=== PATIENT | female | born 1995 | race Caucasian/White ===

== ENCOUNTER 2024-06-09 08:42 | Outpatient (CLI) | payer OTHER, SELFPAY ==
--- NOTE | ~2024-06-09 | US_ITS ---
EXAMINATION: US thyroid DATE: 06/09/2024 08:57 INDICATION: Nontoxic goiter. TECHNIQUE: Multiple ultrasound images of the thyroid were obtained. COMPARISON: None. FINDINGS: The right thyroid lobe measures 4.5 x 1.3 x 1.7 cm. The left thyroid lobe measures 4.2 x 1.2 x 1.6 c m. There is normal echotexture and echogenicity throughout the thyroid gland. No discrete nodules id entified. Normal vascular flow is present. IMPRESSION: 1. Normal thyroid. Reviewed, dictated and finalized at location A. UNIT OPERATOR IMPRESSION: 1. Normal thyroid.
== END 2024-06-09 08:43 | disposition home or self-care (01) ==
LOC: MICIMG 08:44
PROVIDERS: PCP Internal Medicine Endocrinology, Diabetes & Metabolism; Visit Provider Internal Medicine Endocrinology, Diabetes & Metabolism
DX: E04.9 Nontoxic goiter, unspecified (principal)
CPT/HCPCS: 76536

== ENCOUNTER 2025-01-24 07:39 | Outpatient (CLI) | payer OTHER, SELFPAY ==
--- NOTE | ~2025-01-24 | MR_ITS ---
EXAMINATION: MR brain/brain stem wo/w con DATE: 01/24/2025 09:01 INDICATION: Sensorimotor neuropathy TECHNIQUE: Magnetic resonance imaging (MRI) of the brain and brainstem was performed without and with 11 mL Multihance intravenous contrast. Whole-brain sequences included sagittal T1-weighted FSE, axia l diffusion-weighted FS EPI, axial 3D SWAN, axial T2-weighted FLAIR Propeller, and axial T2-weighted Propeller. Small [id number]-ww-yacr sequences included sagittal and coronal T1-weighted FSE centered at th e pituitary. Postcontrast sequences included small dhrka-[id number]-vqra coronal T1-weighted FSE in a time c ourse and sagittal T1-weighted FSE and whole-brain axial T1-weighted FSE. Apparent diffusion coeffici ent (ADC) maps were created. . COMPARISON: None. FINDINGS: There are no areas of restricted diffusion to suggest acute infarction. No intracranial hemorrhage or abnormal intracranial mass lesion. Pituitary appears normal in size and morphology with normal poste rior pituitary bright spot and normal midline pituitary stalk. No hyper or hypoenhancing pituitary le sions identified. Single small focus of nonspecific increased T2-weighted signal intensity at the lef t thalamus. No other evident white matter lesions. There is a small enhancing developmental venous an omaly in the white matter of the right frontal lobe centrum semiovale. There are no intraparenchymal signal abnormalities seen on the other pulse sequences. The ventricles are symmetric and normal in si ze. There are no abnormal extra-axial fluid collections. Flow voids are seen in the cerebral arteries on the T2-weighted sequences consistent with their expected patency. Small mucous retention cyst in the bilateral maxillary sinuses. Visualized orbits and soft tissues are unremarkable. There are no ar eas of abnormal enhancement on the post contrast images. IMPRESSION: 1. No acute intracranial process or abnormally enhancing brain lesions. 2. Single small nonspecific focus of nonspecific white matter T2 hyperintensity left thalamus which i s within normal limits for age. No other white matter lesions identified. 3. 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 Reviewed, dictated and finalized at location A. IMPRESSION: 1. No acute intracranial process or abnormally enhancing brain lesions. 2. Single small nonspecific focus of nonspecific white matter T2 hyperintensity left thalamus which is within normal limits for age. No other white matter les ions identified. 3. Incidental developmental venous anomaly in the white matter of the right fro ntal lobe centrum semiovale.
--- OUTSIDE RECORDS SUMMARY | 2025-01-24 07:46 | XMS_ITS | Patient Health Record ---
Author Organization 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 Role Phone Cyn Nassar Primary Care Provider Allergies Allergen (clinical drug ingredient) Drug/Non Drug Allergy documented on EMR Reaction Allergy Type Onset Date Status quetiapine QUEtiapine Unknown Drug Allergy Activ e Results Component Value Reference Range Flag Notes .COMPREHENSIVE METABOLIC MENON EL (19259) CMP Reviewed date:09/14/2024 11:10:26 AM Interpretation: Performing Lab:[place], [facility]-Hlimpk19829 Saray [facility], PneqmpKR[address] Mahesh Guadalupe MD Notes/Report: FASTING: YES FASTING:YES GLUCOSE 95 65-99 mg/dL N Fasting reference interval UREA NITROGEN (BUN) 11 7-25 mg/dL N CREATININE 0.91 0.50-0.96 mg/dL N EGFR 88 > OR = 60 mL/min/1.73m2 N BUN/CREATININE RATIO SEE NOTE: 6-22 (calc) Not Reported: BUN and Creatinine are within reference range. SODIUM 139 135-146 mmol/L N POTASSIUM 4.1 3.5-5.3 mmol/L N CHLORIDE 103 98-110 mmol/L N CARBON DIOXIDE 26 20-32 mmol/L N CALCIUM 10.0 8.6-10.2 mg/dL N PROTEIN, TOTAL 7.1 6.1-8.1 g/dL N ALBUMIN 4.8 3.6-5.1 g/dL N GLOBULIN 2.3 1.9-3.7 g/dL (calc) N ALBUMIN/GLOBULIN RATIO 2.1 1.0-2.5 (calc) N BILIRUBIN, TOTAL 0.8 0.2-1.2 mg/dL N ALKALINE PHOSPHATASE 49 31-125 U/L N AST 22 10-30 U/L N ALT 40 6-29 U/L H .COMPREHENSIVE METABOLIC MENON (64940) [facility] Reviewed date:11/27/2024 11:13:30 PM Interpretation: Performing Lab:Jean TODDexa10101 Filipe [place] Mahesh Guadalupe MD Notes/Report: FASTING: YES FASTING:YES GLUCOSE 101 65-99 mg/dL H Fasting reference interval For someone without known diabetes, a glucose value between 100 and 125 mg/dL is consistent with prediabetes and should be confirmed with a follow-up test. UREA NITROGEN (BUN) 15 7-25 mg/dL N CREATININE 0.89 0.50-0.96 mg/dL N EGFR 90 > OR = 60 mL/min/1.73m2 N BUN/CREATININE RATIO SEE NOTE: 6-22 (calc) Not Reported: BUN and Creatinine are within reference range. SODIUM 138 135-146 mmol/L N POTASSIUM 3.9 3.5-5.3 mmol/L N CHLORIDE 102 98-110 mmol/L N CARBON DIOXIDE 28 20-32 mmol/L N CALCIUM 9.9 8.6-10.2 mg/dL N PROTEIN, TOTAL 7.1 6.1-8.1 g/dL N ALBUMIN 4.6 3.6-5.1 g/dL N GLOBULIN 2.5 1.9-3.7 g/dL (calc) N ALBUMIN/GLOBULIN RATIO 1.8 1.0-2.5 (calc) N BILIRUBIN, TOTAL 0.4 0.2-1.2 mg/dL N ALKALINE PHOSPHATASE 40 31-125 U/L N AST 19 10-30 U/L N ALT 27 6-29 U/L N .COMPREHENSIVE METABOLIC MENON (44459) [facility] Reviewed date:12/11/2024 05:10:22 PM Interpretation: Performing Lab:Jean TODD-Mjegjg34762 Filipe AndersonaKS[address] Mahesh Guadalupe MD Notes/Report: FASTING:YES FASTING: YES GLUCOSE 94 65-99 mg/dL N Fasting reference interval UREA NITROGEN (BUN) 13 7-25 mg/dL N CREATININE 0.90 0.50-0.96 mg/dL N EGFR 89 > OR = 60 mL/min/1.73m2 N BUN/CREATININE RATIO SEE NOTE: 6- (calc) Not Reported: BUN and Creatinine are within reference range. SODIUM 137 135-146 mmol/L N POTASSIUM 4.1 3.5-5.3 mmol/L N CHLORIDE 104 98-110 mmol/L N CARBON DIOXIDE 26 20-32 mmol/L N CALCIUM 9.5 8.6-10.2 mg/dL N PROTEIN, TOTAL 6.9 6.1-8.1 g/dL N ALBUMIN 4.6 3.6-5.1 g/dL N GLOBULIN 2.3 1.9-3.7 g/dL (calc) N ALBUMIN/GLOBULIN RATIO 2.0 1.0-2.5 (calc) N BILIRUBIN, TOTAL 0.4 0.2-1.2 mg/dL N ALKALINE PHOSPHATASE 45 31-125 U/L N AST 18 10-30 U/L N ALT 24 6-29 U/L N MAGNESIUM (622) Reviewed date:12/11/2024 05:10:22 PM Interpretation: Performing Lab:PEREZ [address] Joselo-Cfltvn45865Annalise Walker, WrsuwwIG[address] Mahesh Guadalupe MD Notes/Report: FASTING: YES FASTING:YES MAGNESIUM 2.0 1.5-2.5 mg/dL N IRON AND TOTAL IRON BINDING CAPACITY (7573) Reviewed date:09/14/2024 11:10:26 AM Interpretation: Performing Lab:Jean TODD-Okamuu28106Annalise Walker, TikeugDN[address] Mahesh Guadalupe MD Notes/Report: FASTING: YES FASTING:YES IRON, TOTAL 144 40-190 mcg/dL N IRON BINDING CAPACITY 385 250-450 mc g/dL (calc) N % SATURATION 37 16-45 % (calc) N .LIPID PANEL, STANDARD (7600 ) Reviewed date:12/11/2024 05:10:22 PM Interpretation: Performing Lab:Jean TODDexa101Annalise Walker, IvqgrqYZ[address] Mahesh Guadalupe MD Notes/Report: FASTING: YES FASTING:YES CHOLESTEROL, TOTAL 165 <200 mg/dL N HDL CHOLESTEROL 68 > OR = 50 mg/dL N TRIGLYCERIDES 67 <150 mg/dL N LDL-CHOLESTEROL 83 N Reference range: <100 Desirable range <100 mg/dL for primary prevention; <70 mg/dL for patients with CHD or diabetic patients with > or = 2 CHD risk factors. LDL-C is now calculated using the Lynn calculation, which is a validated novel method providing better accuracy than the Friedewald equation in the estimation of LDL-C. Ulises SS et al. GARRETT. 2013;310(19): 4722-5644 (http://education.iOculi/faq/FAQ 164) CHOL/HDLC RATIO 2.4 <5.0 (calc) N NON HDL CHOLESTEROL 97 <130 mg/dL (calc) N For patients with diabetes plus 1 major ASCVD risk factor, treating to a non-HDL-C goal of <100 mg/dL (LDL-C of <70 mg/dL) is considered a therapeutic option. .CBC (INCLUDES DIFF/PLT) (63 99) Reviewed date:12/11/2024 05:10:22 PM Interpretation: Performing Lab:PEREZ [facility]-Akvsmi25335 Saray Walker, AfpaulBV[address] Mahesh Guadalupe MD Notes/Report: FASTING: YES FASTING:YES WHITE BLOOD CELL COUNT 6.7 3.8-10.8 Thousand/uL N RED BLOOD CELL COUNT 4.42 3.80-5.10 Million/uL N HEMOGLOBIN 13.5 11.7-15.5 g/dL N HEMATOCRIT 41.6 35.0-45.0 % N MCV 94.1 80.0-100.0 fL N MCH 30.5 27.0-33.0 pg N MCHC 32.5 32.0-36.0 g/dL N For adults, a slight decrease in the calculated MCHC value (in the range of 30 to 32 g/dL) is most likely not clinically significant; however, it should be interpreted with caution in correlation with other red cell parameters and the patient's clinical condition. RDW 12.5 11.0-15.0 % N PLATELET COUNT 286 140-400 Thousand/uL N MPV 9.6 7.5-12.5 fL N ABSOLUTE NEUTROPHILS 3518 3858-8508 cells/uL N ABSOLUTE LYMPHOCYTES 2392 850-3900 cells/uL N ABSOLUTE MONOCYTES 523 200-950 cells/uL N ABSOLUTE EOSINOPHILS 221 15-500 cells/uL N ABSOLUTE BASOPHILS 47 0-200 cells/uL N NEUTROPHILS 52.5 N LYMPHOCYTES 35.7 N MONOCYTES 7.8 N EOSINOPHILS 3.3 N BASOPHILS 0.7 N .CBC (INCLUDES DIFF/PLT) (63 99) Reviewed date:09/14/2024 11:10:26 AM Interpretation: Performing Lab:Jean TODDexa10101 Saray Walker, PggwnaFY[address] Mahesh Guadalupe MD Notes/Report: FASTING:YES FASTING: YES WHITE BLOOD CELL COUNT 9.1 3.8-10.8 Thousand/uL N RED BLOOD CELL COUNT 4.72 3.80-5.10 Million/uL N HEMOGLOBIN 14.2 11.7-15.5 g/dL N HEMATOCRIT 43.1 35.0-45.0 % N MCV 91.3 80.0-100.0 fL N MCH 30.1 27.0-33.0 pg N MCHC 32.9 32.0-36.0 g/dL N For adults, a slight decrease in the calculated MCHC value (in the range of 30 to 32 g/dL) is most likely not clinically significant; however, it should be interpreted with caution in correlation with other red cell parameters and the patient's clinical condition. RDW 14.4 11.0-15.0 % N PLATELET COUNT 329 140-400 Thousand/uL N MPV 9.8 7.5-12.5 fL N ABSOLUTE NEUTROPHILS 4859 8600-0132 cells/uL N ABSOLUTE LYMPHOCYTES 3522 850-3900 cells/uL N ABSOLUTE MONOCYTES 501 200-950 cells/uL N ABSOLUTE EOSINOPHILS 164 15-500 cells/uL N ABSOLUTE BASOPHILS 55 0-200 cells/uL N NEUTROPHILS 53.4 N LYMPHOCYTES 38.7 N MONOCYTES 5.5 N EOSINOPHILS 1.8 N BASOPHILS 0.6 N SED RATE BY MODIFIED WESTERG WESLEY (809) Reviewed date:2024 08:58:57 PM Interpretation: Performing Lab:Jean TODDexa10101 Saray Walker, IzcodrNU[address] Mahesh Guadalupe MD Notes/Report: SED RATE BY MODIFIED WESTERGREN 2 < OR = 20 mm/h N C-REACTIVE PROTEIN (4420) Reviewed date:2024 08:58:57 PM Interpretation: Performing Lab:Jean TODDPdalzj76109 Saray Walker, UspdfbQR[address] Mahesh Guadalupe MD Notes/Report: C-REACTIVE PROTEIN <3.0 <8.0 mg/L N RHEUMATOID FACTOR (4418) Reviewed date:2024 08:58:57 PM Interpretation: Performing Lab:Jean TODD-Cznlrv61837 Saray Walker, MantkpYF[address] Mahesh Guadalupe MD Notes/Report: RHEUMATOID FACTOR <10 <14 IU/mL N CYCLIC CITRULLINATED PEPTIDE (CCP) AB (IGG) (59530) Reviewed date:2024 08:58:57 PM Interpretation: Performing Lab:Jean TODD-Hktlxt76629 Saray Walker, TbnfsvQN[address] Mahesh Guadalupe MD Notes/Report: CYCLIC CITRULLINATED PEPTIDE (CCP) AB (IGG) <16 N Reference Range Negative: <20 Weak Positive: 20-39 Moderate Positive: 40-59 Strong Positive: >59 LUCIUS SCREEN, IFA, W/REFL TITE R AND PATTERN (249) Reviewed date:01/01/2025 03:33:51 PM Interpretation: Performing Lab:Jean TODD-Ivfasi54492 Saray Walker, HirxctLS[address] Mahesh Guadalupe MD Notes/Report: LUCIUS SCREEN, IFA POSITIVE NEGATIVE A LUCIUS IFA is a first line screen for detecting the presence of up to approximately 150 autoantibodies in various autoimmune diseases. A positive LUCIUS IFA result is suggestive of autoimmune disease and reflexes to titer and pattern. Further laboratory testing may be considered if clinically indicated. For additional information, please refer to http://education.Sribu/faq/FAQ1 77 (This link is being provided for informational/ educational purposes only.) LUCIUS TITER 1:40 H A low level LUCIUS titer may be present in pre-clinical autoimmune diseases and normal individuals. Reference Range <1:40 Negative 1:40-1:80 Low Antibody Level >1:80 Elevated Antibody Level LUCIUS PATTERN Nuclear, Speckled A Speckled pattern is associated with mixed connective tissue disease (MCTD), systemic lupus erythematosus (SLE), Sjogren's syndrome, dermatomyositis, and systemic sclerosis/polymyositis overlap. AC-2,4,5,29: Speckled International Consensus on LUCIUS Patterns (https://doi.org/10.151 5/vjae-2090-9112) ESTRADIOL (4021) Reviewed date:09/14/2024 11:10:26 AM Interpretation: Performing Lab:Jean TODD-Dkzdto96681 Saray Walker, MvavlzIT[address] Mahesh Guadalupe MD Notes/Report: FASTING: YES FASTING:YES ESTRADIOL 22 N Reference Range Follicular Phase: 19-144 Mid-Cycle: 64-357 Luteal Phase: 56-214 Postmenopausal: < or = 31 Reference range established on post-pubertal patient population. No pre-pubertal reference range established using this assay. For any patients for whom low Estradiol levels are anticipated (e.g. males, pre-pubertal children and hypogonadal/post-menopa usal females), the [facility] Estradiol, Ultrasensitive, LCMSMS assay is recommended (order code 63777). Please note: patients being treated with the drug fulvestrant (Faslodex(R)) have demonstrated significant interference in immunoassay methods for estradiol measurement. The cross reactivity could lead to falsely elevated estradiol test results leading to an inappropriate clinical assessment of estrogen status. [employer] order code 23791-Ylzidnjmk, Ultrasensitive LC/MS/MS demonstrates negligible cross reactivity with fulvestrant. PROGESTERONE (745) Reviewed date:09/14/2024 11:10:26 AM Interpretation: Performing Lab:Jean TODD-Uwqtrz67732 Saray Walker, CzclrwMZ[address] Mahesh Guadalupe MD Notes/Report: FASTING:YES FASTING: YES PROGESTERONE 1.3 N Reference Ranges Female Follicular Phase < 1.0 Luteal Phase 2.6-21.5 Post menopausal < 0.5 1st Trimester 4.1-34.0 2nd Trimester 24.0-76.0 3rd Trimester 52.0-302.0 VITAMIN B12/FOLATE, SERUM PA CHRISTIAN (8648) Reviewed date:09/14/2024 11:10:26 AM Interpretation: Performing Lab:Jean TODD-Tnojnl43802 Saray Walker IxwmjiAX[address] Mahesh Guadalupe MD Notes/Report: FASTING:YES FASTING: YES VITAMIN B12 928 258-2979 pg/mL N FOLATE, SERUM 6.0 N Reference Range Low: <3.4 Borderline: 3.4-5.4 Normal: >5.4 VITAMIN B12/FOLATE, SERUM PA CHRISTIAN (5084) Reviewed date:12/11/2024 05:10:22 PM Interpretation: Performing Lab:Jean TODD-Sven Walker, VikqksCQ[address] Mahesh Guadalupe MD Notes/Report: FASTING:YES FASTING: YES VITAMIN B12 563 499-2347 pg/mL N FOLATE, SERUM 8.9 N Reference Range Low: <3.4 Borderline: 3.4-5.4 Normal: >5.4 T4, FREE (866) Reviewed date:12/11/2024 05:10:22 PM Interpretation: Performing Lab:Jean TODD LenexaKS[address] Mahesh Guadalupe MD Notes/Report: FASTING:YES FASTING: YES T4, FREE 1.1 0.8-1.8 ng/dL N T4, FREE (866) Reviewed date:09/14/2024 11:10:26 AM Interpretation: Performing Lab:Jean TODD LenexaKS[address] Mahesh Guadalupe MD Notes/Report: FASTING:YES FASTING: YES T4, FREE 1.4 0.8-1.8 ng/dL N TSH (899) Reviewed date:09/14/2024 11:10:26 AM Interpretation: Performing Lab:Jean TODD LenexaKS[address] Mahesh Guadalupe MD Notes/Report: FASTING:YES FASTING: YES TSH 3.87 N Reference Range > or = 20 Years 0.40-4.50 Ranges First trimester 0.26-2.66 Second trimester 0.55-2.73 Third trimester 0.43-2.91 TSH (899) Reviewed date:12/11/2024 05:10:22 PM Interpretation: Performing Lab:Jean TODD LenexaKS[address] Mahesh Guadalupe MD Notes/Report: FASTING:YES FASTING: YES TSH 2.77 N Reference Range > or = 20 Years 0.40-4.50 Ranges First trimester 0.26-2.66 Second trimester 0.55-2.73 Third trimester 0.43-2.91 T3, FREE (99474) Reviewed date:12/11/2024 05:10:22 PM Interpretation: Performing Lab:Jean TODD-Sbpomv35506 Saray Walker, JkrsyvZM[address] Mahesh Guadalupe MD Notes/Report: FASTING: YES FASTING:YES T3, FREE 2.9 2.3-4.2 pg/mL N T3, FREE (44471) Reviewed date:09/14/2024 11:10:26 AM Interpretation: Performing Lab:Jean TODD, XutdzoOT[address] Mahesh Guadalupe MD Notes/Report: FASTING:YES FASTING: YES T3, FREE 4.0 2.3-4.2 pg/mL N .VITAMIN D,25-OH,TOTAL,IA (1 7306) Reviewed date:12/11/2024 05:10:23 PM Interpretation: Performing Lab:Jean TODDa101Annalise Walker, VwprhkAF[address] Mahesh Guadalupe MD Notes/Report: FASTING:YES FASTING: YES VITAMIN D,25-OH,TOTAL,IA 70 30-100 ng/mL N Vitamin D Status 25-OH Vitamin D: Deficiency: <20 ng/mL Insufficiency: 20 - 29 ng/mL Optimal: > or = 30 ng/mL For 25-OH Vitamin D testing on patients on D2-supplementation and patients for whom quantitation of D2 and D3 fractions is required, the QuestAssureD(TM) 25-OH VIT D, (D2,D3), LC/MS/MS is recommended: order code 32991 (patients >2yrs). See Note 1 Note 1 For additional information, please refer to http://education.Sribu/faq/FAQ1 99 (This link is being provided for informational/ educational purposes only.) TESTOSTERONE, FREE (DIALYSIS ) AND TOTAL,MS (82571) Reviewed date:09/18/2024 12:14:36 PM Interpretation: Performing Lab:Z3E, [facility]-AnzZirnce5556 [facility] [address], [address], FnhvkxqasyOS[address] Jeffrey Barnett MD,PhD Notes/Report: FASTING:YES FASTING: YES TESTOSTERONE, TOTAL, MS 22 2-45 ng/dL For additional information, please refer to https://education.[employer]/faq/FAQ 165 (This link is being provided for informational/education al purposes only.) (Note) This test was developed and its analytical performance characteristics have been determined by [employer]. It has not been cleared or approved by the FDA. This assay has been validated pursuant to the CLIA regulations and is used for clinical purposes. TESTOSTERONE, FREE 2.2 0.1-6.4 pg/mL (Note) This test was developed and its analytical performance characteristics have been determined by [employer]. It has not been cleared or approved by the FDA. This assay has been validated pursuant to the CLIA regulations and is used for clinical purposes. [facility] [address] [address],[address] [facility] [address] Jeffrey Barnett MD, PhD COMPREHENSIVE METABOLIC SALAS L Reviewed date:06/04/2024 03:16:09 PM Interpretation: Performing Lab:MEKHI, [email or web address], [facility] [address], [place], [address] [facility] Notes/Report: Fasting reference interval FASTING: YES FASTING:YES GLUCOSE 86 65-99 mg/dL N UREA NITROGEN (BUN) 7 7-25 mg/dL N CREATININE 1.01 0.50-0.96 mg/dL H EGFR 77 > OR = 60 mL/min/1.73m2 N BUN/CREATININE RATIO 7 6-22 (calc) N SODIUM 136 135-146 mmol/L N POTASSIUM 3.9 3.5-5.3 mmol/L N CHLORIDE 100 98-110 mmol/L N CARBON DIOXIDE 25 20-32 mmol/L N CALCIUM 9.5 8.6-10.2 mg/dL N PROTEIN, TOTAL 7.0 6.1-8.1 g/dL N ALBUMIN 4.4 3.6-5.1 g/dL N GLOBULIN 2.6 1.9-3.7 g/dL (calc) N ALBUMIN/GLOBULIN RATIO 1.7 1.0-2.5 (calc) N BILIRUBIN, TOTAL 0.6 0.2-1.2 mg/dL N ALKALINE PHOSPHATASE 36 31-125 U/L N AST 13 10-30 U/L N ALT 14 6-29 U/L N VITAMIN D, 25-HYDROXY, LC/MS /MS Reviewed date:06/04/2024 03:03:51 PM Interpretation: Performing Lab:PEREZ [email or web address], [address], [place], [address] Mahesh Guadalupe MD Notes/Report: educational purposes only.) (This link is being provided for informational/ http://education.[employer] [facility]/faq/XNO309 For additional information, please refer to Note 1 See Note 1 code 15671 (patients >2yrs). 25-OH VIT D, (D2,D3), LC/MS/MS is recommended: order of D2 and D3 fractions is required, the QuestAssureD(TM) D2-supplementation and patients for whom quantitation For 25-OH Vitamin D testing on patients on Optimal: > or = 30 ng/mL Insufficiency: 20 - 29 ng/mL Deficiency: <20 ng/mL Vitamin D Status 25-OH Vitamin D: FASTING: YES FASTING:YES VITAMIN D,25-OH,TOTAL,IA 43 30-100 ng/mL N ACTH, PLASMA Reviewed date:06/08/2024 09:48:44 PM Interpretation: Performing Lab:Jean BETH/Francia [facility], [address], [place], [address] Rocky Traore M.D.,PhD Notes/Report: FASTING:YES FASTING: YES Reference range applies only to specimens collected between 7am-10am. ACTH, PLASMA 35 6-50 pg/mL DEXAMETHASONE Reviewed date:06/16/2024 07:55:10 PM Interpretation: Performing Lab:ALBERT [email or web address]/Francia [facility],, [address] [place], [address] Tiana Little MD,PhD,CHAKA Notes/Report: for clinical purposes. been validated pursuant to the CLIA regulations and is used It has not been cleared or approved by FDA. This assay has characteristics have been determined by [email or web address]. This test was developed and its analytical performance 1 mg dexamethasone overnight: 180-550 ng/dL (8:00-10:00 AM) Baseline: Less than 20 ng/dL Reference Ranges for Dexamethasone: FASTING: YES FASTING:YES DEXAMETHASONE 168 T3, FREE Reviewed date:06/04/2024 03:16:19 PM Interpretation: Performing Lab:Jean TODD, [place], [address] Mahesh Guadalupe MD Notes/Report: FASTING:YES FASTING: YES T3, FREE 3.1 2.3-4.2 pg/mL N CORTISOL, TOTAL Reviewed date:06/04/2024 03:08:43 PM Interpretation: Performing Lab:Jean TODD, Hannah Walker, [place], [address] Mahesh Guadalupe MD Notes/Report: FASTING:YES FASTING: YES Reference Range: For 8 a.m.(7-9 a.m.) Specimen: 4.0-22.0 Reference Range: For 4 p.m.(3-5 p.m.) Specimen: 3.0-17.0 * Please interpret above results accordingly * CORTISOL, TOTAL 42.4 H CORTISOL, TOTAL Reviewed date:06/12/2024 10:47:27 AM Interpretation: Performing Lab:Jean TODD-Precious, Hannah Walker, [place], [address] Mahesh Guadalupe MD Notes/Report: FASTING:YES FASTING: YES Reference Range: For 8 a.m.(7-9 a.m.) Specimen: 4.0-22.0 Reference Range: For 4 p.m.(3-5 p.m.) Specimen: 3.0-17.0 * Please interpret above results accordingly * CORTISOL, TOTAL 4.2 N DHEA SULFATE Reviewed date:06/04/2024 03:16:35 PM Interpretation: Performing Lab:PEREZ [address] [place], [address] Saray Walker, [place], [address] Mahesh Guadalupe MD Notes/Report: FASTING:YES FASTING: YES DHEA SULFATE 364 14-349 mcg/dL H ESTRADIOL Reviewed date:06/04/2024 03:09:27 PM Interpretation: Performing Lab:MEKHI [email or web address], [address] [place], [address] Mahesh Guadalupe Notes/Report: FASTING:YES FASTING: YES Reference Range Follicular Phase: 19-144 Mid-Cycle: 64-357 Luteal Phase: 56-214 Postmenopausal: < or = 31 Reference range established on post-pubertal patient population. No pre-pubertal reference range established using this assay. For any patients for whom low Estradiol levels are anticipated (e.g. males, pre-pubertal children and hypogonadal/post-menopausal females), the [employer] [facility] Estradiol, Ultrasensitive, LCMSMS assay is recommended (order code 69823). Please note: patients being treated with the drug fulvestrant (Faslodex(R)) have demonstrated significant interference in immunoassay methods for estradiol measurement. The cross reactivity could lead to falsely elevated estradiol test results leading to an inappropriate clinical assessment of estrogen status. [employer] order code 43855-Dontzouvv, Ultrasensitive LC/MS/MS demonstrates negligible cross reactivity with fulvestrant. ESTRADIOL <15 N FSH Reviewed date:06/04/2024 03:05:22 PM Interpretation: Performing Lab:Jean TODD, [address] [place], [address] Mahesh Guadalupe MD Notes/Report: FASTING:YES FASTING: YES Reference Range Follicular Phase 2.5-10.2 Mid-cycle Peak 3.1-17.7 Luteal Phase 1.5- 9.1 Postmenopausal 23.0-116.3 FSH <0.7 L LH Reviewed date:06/04/2024 03:05:14 PM Interpretation: Performing Lab:PEREZ [email or web address], [address] [place], [address] Mahesh Guadalupe MD Notes/Report: FASTING:YES FASTING: YES Reference Range Follicular Phase 1.9-12.5 Mid-Cycle Peak 8.7-76.3 Luteal Phase 0.5-16.9 Postmenopausal 10.0-54.7 LH 0.5 N MAGNESIUM Reviewed date:06/04/2024 03:05:53 PM Interpretation: Performing Lab:MEKHI [facility], [address] [place], [address] Mahesh Guadalupe Notes/Report: FASTING:YES FASTING: YES MAGNESIUM 2.0 1.5-2.5 mg/dL N CBC (INCLUDES DIFF/PLT) Reviewed date:06/04/2024 03:05:05 PM Interpretation: Performing Lab:MEKHI [email or web address], [address] [place], [address] Mahesh Guadalupe Notes/Report: FASTING:YES FASTING: YES For adults, a slight decrease in the calculated MCHC value (in the range of 30 to 32 g/dL) is most likely not clinically significant; however, it should be interpreted with caution in correlation with other red cell parameters and the patient's clinical condition. WHITE BLOOD CELL COUNT 6.4 3.8-10.8 Thousand/uL N RED BLOOD CELL COUNT 4.52 3.80-5.10 Million/uL N HEMOGLOBIN 13.5 11.7-15.5 g/dL N HEMATOCRIT 41.0 35.0-45.0 % N MCV 90.7 80.0-100.0 fL N MCH 29.9 27.0-33.0 pg N MCHC 32.9 32.0-36.0 g/dL N RDW 12.5 11.0-15.0 % N PLATELET COUNT 315 140-400 Thousand/uL N MPV 10.4 7.5-12.5 fL N ABSOLUTE NEUTROPHILS 3629 8978-3106 cells/uL N ABSOLUTE LYMPHOCYTES 2336 850-3900 cells/uL N ABSOLUTE MONOCYTES 294 200-950 cells/uL N ABSOLUTE EOSINOPHILS 109 15-500 cells/uL N ABSOLUTE BASOPHILS 32 0-200 cells/uL N NEUTROPHILS 56.7 N LYMPHOCYTES 36.5 N MONOCYTES 4.6 N EOSINOPHILS 1.7 N BASOPHILS 0.5 N VITAMIN B12/FOLATE, SERUM PA CHRISTIAN Reviewed date:06/04/2024 03:16:27 PM Interpretation: Performing Lab:PEREZ [address] [place], [address] [place], [address] Mahesh Guadalupe MD Notes/Report: FASTING:YES FASTING: YES Reference Range Low: <3.4 Borderline: 3.4-5.4 Normal: >5.4 VITAMIN B12 8114 574-7870 pg/mL H FOLATE, SERUM 4.5 L PROGESTERONE Reviewed date:06/04/2024 03:09:34 PM Interpretation: Performing Lab:[email or web address], [address] [place], [address] ЮлияSarah Guadalupe Notes/Report: FASTING:YES FASTING: YES Reference Ranges Female Follicular Phase < 1.0 Luteal Phase 2.6-21.5 Post menopausal < 0.5 1st Trimester 4.1-34.0 2nd Trimester 24.0-76.0 3rd Trimester 52.0-302.0 PROGESTERONE 0.9 N PROLACTIN Reviewed date:06/04/2024 03:08:33 PM Interpretation: Performing Lab:[facility], [address] [place], [address] Mahesh Guadalupe MD Notes/Report: FASTING:YES FASTING: YES Reference Range Females Non- 3.0-30.0 10.0-209.0 Postmenopausal 2.0-20.0 PROLACTIN 12.5 N IRON AND TOTAL IRON BINDING CAPACITY Reviewed date:06/04/2024 03:04:45 PM Interpretation: Performing Lab:[facility], [address] [place], [phone] Mahesh Guadalupe MD Notes/Report: FASTING:YES FASTING: YES IRON, TOTAL 142 40-190 mcg/dL N IRON BINDING CAPACITY 494 250-450 mc g/dL (calc) H % SATURATION 29 16-45 % (calc) N T4, FREE Reviewed date:06/04/2024 03:05:45 PM Interpretation: Performing Lab:[facility], [address] [place], [address] ЮлияSarah Guadalupe Notes/Report: FASTING:YES FASTING: YES T4, FREE 1.2 0.8-1.8 ng/dL N TSH Reviewed date:06/04/2024 03:05:31 PM Interpretation: Performing Lab:[facility], [address] [place], [address] ЮлияSarah Guadalupe Notes/Report: FASTING:YES FASTING: YES Reference Range > or = 20 Years 0.40-4.50 Ranges First trimester 0.26-2.66 Second trimester 0.55-2.73 Third trimester 0.43-2.91 TSH 2.41 N TESTOSTERONE, FREE (DIALYSIS ) AND TOTAL,MS Reviewed date:06/08/2024 09:48:50 PM Interpretation: Performing Lab:[facility], [address], [address], [place], [phone] Jeffrey Barnett MD,PhD Notes/Report: FASTING:YES FASTING: YES For additional information, please refer to https://education.[employer]/faq/MAH992 (This link is being provided for informational/educational purposes only.) (Note) This test was developed and its analytical performance characteristics have been determined by [facility]. It has not been cleared or approved by the FDA. This assay has been validated pursuant to the CLIA regulations and is used for clinical purposes. (Note) This test was developed and its analytical performance characteristics have been determined by [facility]. It has not been cleared or approved by the FDA. This assay has been validated pursuant to the CLIA regulations and is used for clinical purposes. [facility] [address] [facility] [address] Jeffrey Barnett MD, PhD TESTOSTERONE, TOTAL, MS 31 2-45 ng/dL TESTOSTERONE, FREE 2 0.1-6.4 pg/mL Reason For Referral No Information Medications Medication SIG (Take, Route, Frequency, Duration) Notes Start Date End Date Status Slynd 4 MG Tablet 1 tablet Orally Once a day Active Cyanocobalamin 1000 MCG/ML Solution 1 mL Injection once a week Active lamoTRIgine 150 MG Tablet 1 tablet Orall y twice a day Active Ubrelvy 50 MG Tablet 1 tablet as needed, may take second dose at least 2 hours after first dose up to 4 tablets per day as needed Orally Once a day PRN Active Vitamin D 50 MCG (1999) Capsule 1 capsule Orally twice weekly Active Vyvanse 40 MG Capsule 1 capsule in the m orning Orally Once a day Active Qulipta 30 MG Tablet 1 tablet Orally Onc e a day Active Social History Section Notes: Non-Contributory Non-Contributory Problems Problem Type SNOMED Code ICD Code Onset Dates Problem Status W/U Status Risk Notes Problem Non-toxic goiter (969279168) Nontoxic goiter, unspecified (E04.9) Active confirmed Problem Autoimmune thyroiditis (34215434) Autoimmune thyroiditis (E06.3) Active confirmed Problem Polycystic ovary syndrome (disorder) (277896156) Polycystic ovarian syndrome (E28.2) Active confirmed Problem Vitamin D deficiency (75895193) Vitamin D deficiency, unspecified (E55.9) Active confirmed Problem Essential hypertension (18445910) Essential (primary) hypertension (I10) Active confirmed Problem Irregular menstruation (66639113) Irregular menstruation, unspecified (N92.6) Active confirmed Problem Polyarthritis (802789402) Polyarthritis (M13.0) Active confirmed Problem Polycystic ovary syndrome (disorder) (245985872) PCOS (polycystic ovarian syndrome) (E28.2) Active confirmed Vital Signs Heart Rate 102 /min 12/23/2024 Oximetry 98 % 12/23/2024 Blood pressure diastolic 84 mm Hg 12/23/2024 Weight-kg 54.98 kg 12/23/2024 Height 62 in 12/23/2024 Blood pressure systolic 125 mm Hg 12/23/2024 Weight 121.2 lbs 12/23/2024 BMI 22.17 kg/m2 12/23/2024 Encounters Encounter Location Date Provider Diagnosis [facility]MO Dr. Nassar [address] [place] [phone] 05/26/2024 Cyn Nassar Autoimmune thyroidit is E06.3 ; Other fatigue R53.83 ; Irregular menstruation, unspecified N92.6 ; Vitamin D deficiency, unspecified E55.9 and Nontoxic goiter, unspecified E04.[address] Nassar [address] [place] [address] 06/23/2024 Cyn Nassar Autoimmune thyroidit is E06.3 ; Vitamin D deficiency, unspecified E55.9 ; Essential (primary) hypertension I10 and Polycystic ovarian syndrome E28.[address] Nassar [address] [place] [phone] 09/22/2024 Cyn Nassar Autoimmune thyroidit is E06.3 ; Vitamin B12 deficiency E53.8 ; Vitamin D deficiency, unspecified E55.9 ; Lipid screening Z13.220 ; Essential (primary) hypertension I10 ; Weight loss R63.4 ; Dietary counseling and surveillance Z71.3 ; PCOS (polycystic ovarian syndrome) E28.2 and Polycystic ovarian syndrome E28.[address] Nassar [address] [place] [phone] 12/23/2024 Cyn Nassar Sensory motor neurop athy G62.9 ; Polyarthritis M13.0 ; Other fatigue R53.83 and Frequent headaches R51.9 [facility] [place] [phone] 01/16/2025 Cyn Nassar [facility] [place] [phone] 05/31/2024 [place] [phone] 09/21/2024 Cyn Nassar [address] [place], [place] [phone] 12/06/2024 Cyn Nassar [address] [place], [place] [phone] 12/30/2024 Cyn SORIANO [place] [phone] 01/16/2025 Cyn Nassra [address] [place] [phone] 01/18/2025 Cyn Nassar [address] [place] [phone] 06/21/2024 Cyn Nassar Assessments Encounter Date Diagnosis (ICD Code) Assessment Notes Treatment Notes Treatment Clinical Notes Section Notes 05/26/2024 Autoimmune thyroiditis (ICD-10 - E06.3) 05/26/2024 Other fatigue (ICD-10 - R53.83) 06/23/2024 Autoimmune thyroiditis (ICD-10 - E06.3) 06/23/2024 Vitamin D deficiency, unspecified (ICD-10 - E55.9) 09/22/2024 Autoimmune thyroiditis (ICD-10 - E06.3) Continue on thyroid support as her thyroid levels are in ideal range and patient has overall better energy and focus and has lost 15 pounds since last visit. 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 06/23/2024 Essential (primary) hypertension (ICD-10 - I10) 05/26/2024 Irregular menstruation, unspecified (ICD-10 - N92.6) 05/26/2024 Vitamin D deficiency, unspecified (ICD-10 - E55.9) 06/23/2024 Polycystic ovarian syndrome (ICD-10 - E28.2) 09/22/2024 Lipid screening (ICD-10 - Z13.220) Send for lipid panel. 12/23/2024 Frequent headaches (ICD-10 - R51.9) 09/22/2024 Essential (primary) hypertension (ICD-10 - I10) Controlled overall-trial on spironolactone and uptitrate to 100 mg daily if tolerated. 05/26/2024 Nontoxic goiter, unspecified (ICD-10 - E04.9) 09/22/2024 Weight loss (ICD-10 - R63.4) 09/22/2024 PCOS (polycystic ovarian syndrome) (ICD-10 - E28.2) 09/22/2024 Dietary counseling and surveillance (ICD-10 - Z71.3) Spent 15 minutes preventative counseling patient on dietary recommendations and changes in setting of hyperglycemia- need to restrict refined sugars and processed foods and incorporate up to 150 minutes of moderate level activity weekly. 09/22/2024 Polycystic ovarian syndrome (ICD-10 - E28.2) In multiple studies a moderate amount of daily exercise increases levels of IGF-1 binding protein and decreases levels of IGF-1 by 20%. Modest weight loss of 2-5% of total body weight can help restore ovulatory menstrual periods in obese patients with PCOS. A decrease of 500-1000 calories daily, along with 150 minutes of exercise per week, can cause ovulation. Patient was encouraged to continue to maintain diet but not to go toward an extreme form of ketogenic diet. Recommended up to 60 grams of carbs a day split into 6 tiny small 10 gram carb meals or three larger 20 gram carb meals in addition to up to 70 grams of protein daily split into 10-15 grams for 5-6 smaller meals. The recommended diet should be one of which she can incorporate on a daily basis that will not modulate her lifestyle- discussed a diet of increased fiber; decreased refined carbohydrates, trans fats, and a saturated fats with focus on monounsaturated fats such as unprocessed chicken, turkey, nuts (excluding peanuts) and beans. 05/26/2024 Other Assessment and Plan: 1. High cortisol levels- Plan: Perform a DEXA suppression test to evaluate the cortisol levels further. Check other adrenal and pituitary hormones to ensure there's no disconnect between the pituitary adrenal axis. Two sets of labs will be ordered: one fasting with about 20 tests, and another with two tests after taking a dexamethasone pill at 10 p.m. and an 8 a.m. cortisol the next morning. 2. Anxiety, sleep disturbances, and weight loss- Plan: Monitor symptoms and correlate with hormonal evaluation results. Consider further evaluation and management based on the results of the hormonal tests. 3. Vitamin D and B12 deficiency- Plan: Continue current supplementation with vitamin D twice a week and B12 injections once a week. 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 4. Digestion issues and acid reflux- Plan: Encourage the patient to increase fiber intake, maintain hydration, and consume more fruits. Monitor symptoms and consider further evaluation if symptoms persist or worsen. 5. Hemorrhoids and constipation- Plan: Recommend increasing fiber, water, and fruit intake to help alleviate constipation. Monitor symptoms and consider further evaluation if symptoms persist or worsen. 6. Elevated blood pressure- Plan: Monitor blood pressure and consider further evaluation if consistently elevated. Encourage stress management techniques to help control blood pressure. 7. Follow-up- Plan: Schedule a follow-up appointment in 3-4 weeks to review the results of the hormonal tests and discuss further management based on the findings. Spent 45 minutes preparing to see the patient (ex review of tests/chart), obtaining and / or reviewing separately obtained history, performing a medically appropriate examination and/or evaluation, counseling and educating the patient/family/ocular care aide, ordering medications, tests, or procedures, referring and communicating with other health patient care provider, documenting clinical information in the electronic or other health record, independently interpreting results and communicating results to the patient/family/ocular care aide and care coordinating patient plan. Patient alert and oriented x 4 and aware of discussion noted above and in agreeance to plan in management of fatigue, high cortisol concerns, low energy, acne, on OCP for regulation of cycles and goiter. 06/23/2024 Other Assessment and Plan: 1. Polycystic Ovary Syndrome (PCOS)- Plan: Consider switching to progesterone-only control (Slynd) to help with migraines and acne. Reassess in 3-4 months. 2. High cortisol levels- Plan: Discontinue estrogen-containing control for at least 6 weeks and recheck cortisol levels. If cortisol remains high, further evaluation with ACTH and DHEA-S levels may be necessary. 3. Folic acid deficiency- Plan: Start methylated B12 and folic acid supplementation. Discontinue B12 injections. Reassess in 3-4 months. 4. Possible early autoimmune thyroiditis (Dann's)- Plan: Start thyroid support supplement (e.g., Purely Holistic Thyroid Support). Reassess in 3-4 months. 5. Migraines- Plan: Switch to progesterone-only control and monitor for improvement in migraines. Reassess in 3-4 months. 6. Acne- Plan: Consider prescribing spironolactone for acne and oily skin if no improvement after switching to progesterone-only control. Ensure proper contraception use due to teratogenic effects of spironolactone. 7. Hypertension- Plan: Monitor blood pressure and consider adjusting medications if necessary. Reassess in 3-4 months. 8. Gluten sensitivity- Plan: Recommend a gluten-free diet to potentially alleviate rash and other symptoms. Reassess in 3-4 months. Follow-up: Schedule a follow-up appointment in 3-4 months to assess changes and response to treatments. Spent 25 minutes preparing to see the patient (ex review of tests/chart), obtaining and / or reviewing separately obtained history, performing a medically appropriate examination and/or evaluation, counseling and educating the patient/family/ocular care aide, ordering medications, tests, or procedures, referring and communicating with other health patient care provider, documenting clinical information in the electronic or other health record, independently interpreting results and communicating results to the patient/family/ocular care aide and care coordinating patient plan. Patient alert and oriented x 4 and aware of discussion noted above and in agreeance to plan in management of PCOS, autoimmune thyroiditis, hypertension, vit D def/folic acid def. 09/22/2024 Other Spent 25 minute s preparing to see the patient (ex review of tests/chart), obtaining and / or reviewing separately obtained history, performing a medically appropriate examination and/or evaluation, counseling and educating the patient/family/ocular care aide, ordering medications, tests, or procedures, referring and communicating with other health patient care provider, documenting clinical information in the electronic or other health record, independently interpreting results and communicating results to the patient/family/ocular care aide and care coordinating patient plan. Patient alert and oriented x 4 and aware of discussion noted above and in agreeance to plan in management of autoimmune thyroiditis, vitamin B12/folate deficiency, vit D def, intentional weight loss/normal BMI, now well controlled hypertension. 12/23/2024 Other Assessment and Plan: 1. Suspected Autoimmune Disorder- Patient presents with constellation of symptoms including recurrent headaches, rashes on arms, chest, and back, joint pain, fatigue, and visual disturbances- Previous rheumatology evaluation 10 years ago was inconclusive with elevated inflammatory markers- Recent symptoms include difficulty lifting and opening jars, with finger involvement- Visual symptoms include blurry vision and persistent eye ache- Order autoimmune panel: LUCIUS, Rheumatoid factor, Full lupus panel- Order CRP- Order MRI of the brain - Discuss results and potential referral to rheumatology based on findings 2. Chronic Headaches- Headaches improved somewhat with switch from Aviane to Slynd but persist- Currently using Qulipta as needed with partial relief- Continue Slynd for contraception and headache management- Continue Qulipta as needed for acute headache management- Await results of MRI brain for further evaluation- Consider referral to neurology for headache management based on MRI findings 3. Dermatological Issues- Rashes present on arms, chest, and back- Previously trialed spironolactone for facial symptoms with some improvement, discontinued due to side effects- Await results of autoimmune panel for potential underlying etiology- Consider dermatology referral based on autoimmune panel results and persistence of symptoms 4. Visual Disturbances - Symptoms include blurry vision and persistent eye ache- Previous ophthalmology evaluation suggested sleep hygiene improvements without symptom resolution- Await results of MRI brain and autoimmune panel- Consider referral to neuro-ophthalmology based on test results Spent 25 minutes preparing to see the patient (ex review of tests/chart), obtaining and / or reviewing separately obtained history, performing a medically appropriate examination and/or evaluation, counseling and educating the patient/family/ocular care aide, ordering medications, tests, or procedures, referring and communicating with other health patient care provider, documenting clinical information in the electronic or other health record, independently interpreting results and communicating results to the patient/family/ocular care aide and care coordinating patient plan. Patient alert and oriented x 4 and aware of discussion noted above and in agreeance to plan in management of sensory changes, arthritis, fatigue, headaches/visual changes and need for MRI/brain imaging. Plan Of Treatment Pending Test Test Name Order Date *MRI BRAIN W/O AND W/ CONTRAST [SE[facility]ATUR ISICA] [id number] 12/23/2024 Ultrasound thyroid 05/26/2024 Next Appt Details Provider Name:Cyn Nasasr, 10:40:00 AM, [address] [place] [address], [phone], Insurance Providers Payer Name Payer Address Payer Phone Subscriber Number Group Number Insured Name Patient Relationship to Insured Coverage Start Date Coverage End Date [address] [address] [place] [address] [id number] Haydee Hyde Self - patient is the insured Medical (General) History Medical History History ICD Code high cortisol levels
--- OUTSIDE RECORDS SUMMARY | 2025-01-24 07:46 | XMS_ITS | Patient Health Record ---
[facility] Organization [facility] Address [address] [place] [address] Care Team Providers Care Environment Artist Name Role Phone Cyn Nassar Primary Care Provider Allergies Allergen (clinical drug ingredient) Drug/Non Drug Allergy documented on EMR Reaction Allergy Type Onset Date Status quetiapine QUEtiapine Unknown Drug Allergy Activ e Results Component Value Reference Range Notes COMPREHENSIVE METABOLIC PANE L Reviewed date:06/04/2024 03:16:09 PM Interpretation: Performing Lab:[facility], [address], [place], [address] Mahesh Guadalupe Notes/Report: FASTING:YES FASTING: YES VITAMIN D, 25-HYDROXY, LC/MS /MS Reviewed date:06/04/2024 03:03:51 PM Interpretation: Performing Lab:[place] [facility], [address], [place], [address] Mahesh Guadalupe MD Notes/Report: FASTING:YES FASTING: YES ACTH, PLASMA Reviewed date:06/08/2024 09:48:44 PM Interpretation: Performing Lab:[facility] [facility], [address], [place], [address] Rocky Traore M.D.,PhD Notes/Report: FASTING:YES FASTING: YES T3, FREE Reviewed date:06/04/2024 03:16:19 PM Interpretation: Performing Lab:[place], [facility], [address], [place], [place], [address] Mahesh Guadalupe MD Notes/Report: FASTING:YES FASTING: YES CORTISOL, TOTAL Reviewed date:06/04/2024 03:08:43 PM Interpretation: Performing Lab:[facility], [address], [place], [place], [address] Mahesh Guadalupe MD Notes/Report: FASTING:YES FASTING: YES DHEA SULFATE Reviewed date:06/04/2024 03:16:35 PM Interpretation: Performing Lab:[facility], [address], [place], [place], [address] Mahesh Guadalupe MD Notes/Report: FASTING:YES FASTING: YES ESTRADIOL Reviewed date:06/04/2024 03:09:27 PM Interpretation: Performing Lab:[facility], [address] [place], [address] Mahesh Guadalupe Notes/Report: FASTING:YES FASTING: YES FSH Reviewed date:06/04/2024 03:05:22 PM Interpretation: Performing Lab:[facility], [address], [place], [address] Mahesh Guadalupe MD Notes/Report: FASTING:YES FASTING: YES LH Reviewed date:06/04/2024 03:05:14 PM Interpretation: Performing Lab:[facility], [address], [place], [place], [address] Mahesh Guadalupe MD Notes/Report: FASTING:YES FASTING: YES MAGNESIUM Reviewed date:06/04/2024 03:05:53 PM Interpretation: Performing Lab:[facility], [address] [place], [address] Mahesh Guadalupe Notes/Report: FASTING:YES FASTING: YES CBC (INCLUDES DIFF/PLT) Reviewed date:06/04/2024 03:05:05 PM Interpretation: Performing Lab:[facility], [address] [place], [address] Mahesh Guadalupe Notes/Report: FASTING:YES FASTING: YES VITAMIN B12/FOLATE, SERUM PA CHRISTIAN Reviewed date:06/04/2024 03:16:27 PM Interpretation: Performing Lab:[facility], [address] [place], [address] Mahesh Guadalupe MD Notes/Report: FASTING:YES FASTING: YES PROGESTERONE Reviewed date:06/04/2024 03:09:34 PM Interpretation: Performing Lab:[facility], [address] [place], [address] Mahesh Guadalupe Notes/Report: FASTING:YES FASTING: YES PROLACTIN Reviewed date:06/04/2024 03:08:33 PM Interpretation: Performing Lab:[place], [facility], [address], [place], [address] Mahesh Guadalupe MD Notes/Report: FASTING:YES FASTING: YES IRON AND TOTAL IRON BINDING CAPACITY Reviewed date:06/04/2024 03:04:45 PM Interpretation: Performing Lab:[facility], [address], [place], [address] Mahesh Guadalupe MD Notes/Report: FASTING:YES FASTING: YES T4, FREE Reviewed date:06/04/2024 03:05:45 PM Interpretation: Performing Lab:[facility], [address] [place], [address] Mahesh Guadalupe Notes/Report: FASTING:YES FASTING: YES TSH Reviewed date:06/04/2024 03:05:31 PM Interpretation: Performing Lab:[facility], [address] [place], [address] Mahesh Guadalupe Notes/Report: FASTING:YES FASTING: YES TESTOSTERONE, FREE (DIALYSIS ) AND TOTAL,MS Reviewed date:06/08/2024 09:48:50 PM Interpretation: Performing Lab:[facility], [facility], [address] [address], [address], [place], [address] Jeffrey Barnett MD,PhD Notes/Report: FASTING:YES FASTING: YES TESTOSTERONE, TOTAL, MS 31 2-45 ng/dL For additional information, please refer to https://education.Sav[employer].com/faq/WPZ170 (This link is being provided for informational/educational purposes only.) (Note) This test was developed and its analytical performance characteristics have been determined by [employer]. It has not been cleared or approved by the FDA. This assay has been validated pursuant to the CLIA regulations and is used for clinical purposes. TESTOSTERONE, FREE 2 0.1-6.4 pg/mL (Note) This test was developed and its analytical performance characteristics have been determined by [employer]. It has not been cleared or approved by the FDA. This assay has been validated pursuant to the CLIA regulations and is used for clinical purposes. [facility] [address] [address],[address] [facility] [address] Jeffrey Barnett MD, PhD DEXAMETHASONE Reviewed date:06/16/2024 07:55:10 PM Interpretation: Performing Lab:[facility] [facility],, [address] [place], [address] Tiana Little MD,PhD,CHAKA Notes/Report: FASTING:YES FASTING: YES DEXAMETHASONE 168 Reference Ranges for Dexamethasone: Baseline: Less than 20 ng/dL 1 mg dexamethasone overnight: 180-550 ng/dL (8:00-10:00 AM) This test was developed and its analytical performance characteristics have been determined by [employer]. It has not been cleared or approved by FDA. This assay has been validated pursuant to the CLIA regulations and is used for clinical purposes. CORTISOL, TOTAL Reviewed date:06/12/2024 10:47:27 AM Interpretation: Performing Lab:[place] [facility], [address] [place], [address] Mahesh Guadalupe MD Notes/Report: FASTING:YES FASTING: YES Reason For Referral No Information Medications Medication SIG (Take, Route, Frequency, Duration) Notes Start Date End Date Status Vitamin D 50 MCG (1999 UT) 1 capsule Ora lly twice weekly Active Cyanocobalamin 1000 MCG/ML 1 mL Injectio n once a week Active lamoTRIgine 150 MG 1 tablet Orally twic e a day Active Aviane 0.1-20 MG-MCG 1 tablet Orally Onc e a day Active Vyvanse 40 MG 1 capsule in the mor roseann Orally Once a day Active Qulipta 30 MG 1 tablet Orally Once a day Active Ubrelvy 50 MG 1 tablet as needed, may take second dose at least 2 hours after first dose up to 4 tablets per day as needed Orally Once a day PRN Active Problems Problem Type SNOMED Code ICD Code Onset Dates Problem Status W/U Status Risk Notes Problem Vitamin D deficiency (55042296) Vitamin D deficiency, unspecified (E55.9) Active confirmed Problem Essential hypertension (00136426) Essential (primary) hypertension (I10) Active confirmed Problem 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) Nontoxic goiter, unspecified (E04.9) Active confirmed Problem Autoimmune thyroiditis (51448940) Autoimmune thyroiditis (E06.3) Active confirmed Problem Polycystic ovary syndrome (disorder) (090518870) Polycystic ovarian syndrome (E28.2) Active confirmed Problem Irregular menstruation (09279111) Irregular menstruation, unspecified (N92.6) Active confirmed Vital Signs Heart Rate 92 /min 06/23/2024 Blood pressure diastolic 97 mm Hg 06/23/2024 Height 62 in 06/23/2024 Blood pressure systolic 144 mm Hg 06/23/2024 Weight 145.8 lbs 06/23/2024 BMI 26.66 kg/m2 06/23/2024 Encounters Encounter Location Date [facility] [address] [place] [address] 09/22/2024 [facility] [employer] [address] [place] [address] 05/26/2024 Cyn Rexly Autoimmune thyroidit is E06.3 ; Other fatigue R53.83 ; Irregular menstruation, unspecified N92.6 ; Vitamin D deficiency, unspecified E55.9 and Nontoxic goiter, unspecified E04.9 [facility] [employer] [address] [place] [address] 06/23/2024 Cyn Nassar Autoimmune thyroidit is E06.3 ; Vitamin D deficiency, unspecified E55.9 ; Essential (primary) hypertension I10 and Polycystic ovarian syndrome E28.2 [facility] [employer] [address] [place] [address] 05/31/2024 Cyn Nassar [facility] [employer] [address] [place] [address] 06/21/2024 Cyn [facility] Encounter Date Diagnosis (ICD Code) Assessment Notes Treatment Notes Treatment Clinical Notes Section Notes 05/26/2024 Other fatigue (ICD-10 - R53.83) 05/26/2024 Autoimmune thyroiditis (ICD-10 - E06.3) 06/23/2024 Vitamin D deficiency, unspecified (ICD-10 - E55.9) 06/23/2024 Autoimmune thyroiditis (ICD-10 - E06.3) 05/26/2024 Irregular menstruation, unspecified (ICD-10 - N92.6) 06/23/2024 Essential (primary) hypertension (ICD-10 - I10) 05/26/2024 Vitamin D deficiency, unspecified (ICD-10 - E55.9) 06/23/2024 Polycystic ovarian syndrome (ICD-10 - E28.2) 05/26/2024 Nontoxic goiter, unspecified (ICD-10 - E04.9) 05/26/2024 Other Assessment and Plan: 1. High [...] once a week. Encourage the patient to berry picker the prescribed folic acid or consider [id number] options if the cost is a concern. [...] examination and/or evaluation, counseling and educating the patient/family/manager care, ordering medications, tests, or procedures, referring and communicating with other health post acute care nurse practitioner, documenting clinical information in the electronic or other health record, independently interpreting results and communicating results to the patient/family/manager care and care coordinating patient plan. Patient alert [...] examination and/or evaluation, counseling and educating the patient/family/manager care, ordering medications, tests, or procedures, referring and communicating with other health post acute care nurse practitioner, documenting clinical information in the electronic or other health record, independently interpreting results and communicating results to the patient/family/manager care and care coordinating patient plan. Patient alert and oriented x 4 and aware of discussion noted above and in agreeance to plan in management of PCOS, autoimmune thyroiditis, hypertension, vit D def/folic acid def. Plan Of Treatment Pending Test Test Name Order Date Ultrasound thyroid 05/26/2024 Insurance Providers Payer Name Payer Address Payer Phone Subscriber Number Group Number Insured Name Patient Relationship to Insured Coverage Start Date Coverage End Date [employer] [address] [address] [place] [phone] [id number] Haydee Hyde Self - patient is the insured Medical (General) History Medical History History ICD Code high cortisol levels
--- OUTSIDE RECORDS SUMMARY | 2025-01-24 07:46 | XMS_ITS ---
Author Organization [facility] Address [address] [place] [address] Care Team Providers Care Disability Aide Name Role Phone Cyn Nassar Primary Care Provider [phone] REASON FOR VISIT 3 Month Follow-up Encounters Encounter Location Date Provider Diagnosis [facility] - Cyn Nassar [address] [place] [address] 09/22/2024 Cyn Nassar Plan Of Treatment No Information Progress Notes * SEBASTIEN, KirbysantiagoJoeOB:[birth year] (29 yo F)Acc No.[id number]:09/22/2024 Progress Notes Patient: Haydee ADDISON Provider: Ori Nassar MD :1995 A ge:28 Y S ex:Female Date:09/22/2024 Address[address], [place] [address] Subjective: * Chief Complaints: * 1 . 3 Month Follow-up. * Medical History: Objective: * Vitals: Assessment: Plan: * Treatment: * Billing Information: * Visit Code: * Procedure Codes: * Electronic signature of Andres Nassar MD on 01/24/2025 at 03:46 AM CDT Sign off status: Pending * Provider: Ori Nassar MD Date: 09/22/2024 Generated for Isac ng/Fapj/eTransmitting on: 0 01/24/2025 03:46 AM CDT
--- OUTSIDE RECORDS SUMMARY | 2025-01-24 07:46 | XMS_ITS | Clinical Summary ---
Author Organization [facility] Address [facility] [place] [address] Care Team Providers Care Grants Manager Name Role Phone Radha Lopez LENS GRINDER ROUGH Primary Care Provider [phone] Allergies No known active allergies Medications dicyclomine (BENTYL) 20 MG tablet Take 1 tablet (20 mg total) by mouth every 6 (six) hours as needed. 20 tablet 4 Active ondansetron (ZOFRAN-ODT) 4 MG disintegrating tablet Take 1 tablet (4 mg total) by mouth every 8 (eight) hours as needed. 10 tablet 4 Active Encounters Date Type Department Care Team Description 11/22/2024 6:08 PM CDT - 11/22/2024 7:[address] [facility] [place] [address] Carmenza Farmer PA Breathing Problem Discharge Disposition: Home or Self Care (Routine Discharge) 11/22/2024 Travel from Last 3 Months Social History Tobacco Use Types Packs/Day Years Used Date Smoking Tobacco: Never Smokeless Tobacco: Current Tobacco Cessation:Ready to Q uit: Not Asked; Counseling Given: Not Answered Alcohol Use Standard Drinks/Week Comments Not Currently 0 (1 standard drink = 0.6 oz pur e alcohol) Comments No Sex and Gender Information Value Date Recorded Sex Assigned at Not on file Legal Sex Female 1:11 PM CDT Gender Identity Not on file Sexual Orientation Not on file Last Filed Vital Signs Vital Sign Reading Time Taken Comments Blood Pressure 110/68 11/22/2024 7:56 PM CDT Pulse 80 11/22/2024 7:56 PM CDT Temperature 36.5 C (97.7 F) 11/22/2024 5:22 PM CDT Respiratory Rate 18 11/22/2024 7:56 PM CDT Oxygen Saturation 100% 11/22/2024 7:56 PM CDT Inhaled Oxygen Concentration - - Weight 70.3 kg (155 lb) 11/22/2024 5:22 PM CDT Height 157.5 cm (5' 2) 11/22/2024 5:22 PM CDT Body Mass Index 28.35 11/22/2024 5:22 PM CDT Plan of Treatment Health Maintenance Due Date Last Done Comments Cervical Cancer Screening Pa p Smear (Age 30 to 64) Every 3 Years 1994 Annual Physical 1997 Hepatitis C 2012 DTaP, Tdap and Td Vaccines ( 1 - Tdap) 2013 Hepatitis B Vaccines (1 of 3 - 19+ 3-dose series) 2013 HPV Vaccines (1 - 3-dose SCD M series) 2021 COVID-19 Vaccine ( - 2023-2 5 season) 2024 Cervical Cancer Screening Pa p with HPV Testing (Age 30 to 64) Every 5 Years 2024 Cervical Cancer Screening with HPV 2024 Meningococcal B Vaccine Aged Out No l onger eligible based on patient's age to complete this topic Meningococcal Vaccine Aged Out No kathy lukas eligible based on patient's age to complete this topic Pneumococcal Vaccine: Pediat rics (0 to 5 Years) and At-Risk Patients (6 to 49 Years) Aged Out No longer eligible b ased on patient's age to complete this topic RSV Immunizations Under 20 Months Aged Out No longer eligible based on patient's age to complete this topic Procedures Procedure Name Priority Date/Time Associated Diagnosis Comments LIPASE STAT 11/22/2024 6:15 PM CDT D-DIMER, QUANTITATIVE STAT 11/22/2024 6:15 PM CDT TROPONIN, QUANT STAT 11/22/2024 6:15 PM CDT COMPREHENSIVE METABOLIC PANEL STAT 11/22/2024 6:15 PM CDT CBC W/DIFF AUTOMATED STAT 11/22/2024 6:15 PM CDT CHORIONIC GONADOTROPIN HCG QL STAT 11/22/2024 6:13 PM CDT ECG 12-LEAD Routine 11/22/2024 6:08 PM CDT XR CHEST PORTABLE STAT 11/22/2024 5:4 4 PM CDT from Last 3 Months Results * (ABNORMAL) COMPREHENSIVE METABOLIC PANEL (11/22/2024 6:15 PM CDT) [facility] GLUCOSE 81 70 - 99 MG/DL 11/22/2024 7:06 PM CDT [facility] BUN 9 7 - 18 MG/DL 11/22/2024 7:06 PM CDT [facility] CREATININE S/P/B 0.90 0.55 - 1.02 MG/DL 11/22/2024 7:06 PM CDT [facility] SODIUM S/P/B 137 136 - 145 MMOL/L 11/22/2024 7:06 PM CDT [facility] POTASSIUM S/P/B 4.0 3.5 - 5.1 MMOL/L 11/22/2024 7:06 PM CDT [facility] CHLORIDE S/P/B 105 97 - 115 MMOL/L 11/22/2024 7:06 PM CDT [facility] CO2 28.5 21 - 32 MMOL/L 11/22/2024 7:06 PM CDT [facility] CALCIUM S/P/B 9.4 8.5 - 10.1 MG/DL 11/22/2024 7:06 PM CDT [facility] BILIRUBIN TOTAL S/P/B 0.4 0.2 - 1.2 MG/DL 11/22/2024 7:06 PM CDT [facility] Comment: THIS ASSAY IS NOT RECOMMENDED FOR PATIENTS UNDERGOING TREATMENT WITH ELTROMBOPAG DUE TO THE POTENTIAL FOR FALSELY ELEVATED RESULTS. TOTAL PROTEIN S/P/B 7.8 6.4 - 8.2 G/DL 11/22/2024 7:06 PM CDT [facility] ALBUMIN S/P/B 4.2 3.4 - 5.0 G/DL 11/22/2024 7:06 PM CDT [facility] AST 13(L) 15 - 37 U/L 11/22/2024 7:06 PM T [facility] ALT 33 14 - 55 U/L 11/22/2024 7:06 PM T [facility] ALKALINE PHOSPHATASE S/P/B 51 50 - 136 U/L 11/22/2024 7:06 PM T [facility] ANION GAP 3.5 2 - 10 MMOL/L 11/22/2024 7:06 PM T [facility] BUN CREATININE RATIO 10.0 6 - 26 11/22/2024 7:06 PM T [facility] A/G RATIO 1.2 1.0 - 2.0 RATIO 11/22/2024 7:06 PM [facility] GFR ESTIMATE 89(L) >90 ML/MIN/1.7 3 M2 11/22/2024 7:06 PM T [facility] Comment: NOTE: eGFR is not calculated for patients <18 years of age or gender unknown. This is an estimated GFR calculation using the new CKD EPI creatinine equation without race and so does not require a correction factor for race. This estimated GFR should not be used for calculating drug doses. 11/22/2024 6:15 PM CDT us [facility] Final Result [facility] [address] [place] [address], [place] [phone] * D-DIMER, QUANTITATIVE (11/22/2024 6:15 PM CDT) [facility] D-DIMER <215 0 - 500 ng{FEU}/mL 11/22/2024 7:08 PM CDT [facility] Comment: D-Dimer values less than or equal to 500 ng/mL FEU have a negative predictive value of >95% for exclusion of deep vein thrombosis and pulmonary embolism. In patients over 50 (who tend to have higher normal baseline D-Dimer values), recent studies suggest age-adjusted D-Dimer cutoff values (calculated as: age [years] x 10 ng/mL) result in equivalent outcomes and no additional false negative findings. 11/22/2024 6:15 PM CDT [facility] Final Result [facility] [address] [place] [address], [place] [phone] * (ABNORMAL) CBC W/DIFF AUTOMATED (11/22/2024 6:15 PM CDT) [facility] WBC 7.52 4.5 - 11.0 x10'3/uL 11/22/2024 6:47 PM CDT [facility] RBC 4.64 4.20 - 5.40 x10'6/uL 11/22/2024 6:47 PM CDT [facility] HGB 14.3 12.0 - 16.0 G/DL 11/22/2024 6:47 PM CDT [facility] HCT 41.1 38.0 - 48.0 % 11/22/2024 6:47 PM CDT [facility] MCV 88.6 81.0 - 99.0 FL 11/22/2024 6:47 PM CDT [facility] MCH 30.8 27.0 - 31.0 PG 11/22/2024 6:47 PM CDT [facility] MCHC 34.8 32.0 - 36.0 G/DL 11/22/2024 6:47 PM CDT [facility] RDW 12.1 11.5 - 14.5 % 11/22/2024 6:47 PM CDT [facility] PLT 319 130 - 400 x10'3/uL 11/22/2024 6:47 PM CDT [facility] MPV 9.2(L) 9.3 - 12.2 FL 11/22/2024 6:47 PM CDT [facility] DIFFERENTIAL TYPE AUTOMATED DIFFERENTIAL 11/22/2024 6:47 PM CDT [facility] NEUTROPHILS % 67.8 % 11/22/2024 6:47 PM CDT [facility] LYMPHOCYTES % 23.9 % 11/22/2024 6:47 PM CDT [facility] MONOCYTES % 5.3 % 11/22/2024 6:47 PM CDT [facility] EOSINOPHILS 2.0 % 11/22/2024 6:47 PM CDT [facility] BASOPHILS 0.7 % 11/22/2024 6:47 PM CDT [facility] IMMATURE GRANS % 0.3 % 11/23/19 6:47 PM CDT [facility] ABS. NEUTROPHILS 5.10 1.80 - 7.70 x10'3/uL 11/22/2024 6:47 PM CDT [facility] ABS. LYMPHOCYTES 1.80 1.00 - 4.80 x10'3/uL 11/22/2024 6:47 PM CDT [facility] ABS. MONOCYTES 0.40 0.24 - 0.86 x10'3/uL 11/22/2024 6:47 PM CDT [facility] ABS. EOSINOPHILS 0.15 0.04 - 0.36 x10'3/uL 11/22/2024 6:47 PM CDT [facility] ABS. BASOPHILS 0.05 0.01 - 0.08 x10'3/uL 11/22/2024 6:47 PM CDT [facility] ABS. IMMATURE GRANULOCYTES 0.02 0.00 - 0.49 x10'3/uL 11/22/2024 6:47 PM CDT [facility] 11/22/2024 6:15 PM CDT [facility] Final Result [facility] [address] [place] [address], [place] [phone] * TROPONIN, QUANT (11/22/2024 6:15 PM CDT) Pathologist [facility] TROPONIN I HIGH SENSITIVITY <3 <54 ng/L 11/22/2024 7:06 PM CDT [facility] Comment: HIGH DOSES OF BIOTIN, TROPONIN-SPECIFIC AUTOANTIBODIES, AND ANTIBODY THERAPY CONTAINING HAMA MAY INTERFERE WITH THIS TEST RESULT. CORRELATION TO CLINICAL HISTORY AND PRESENTATION RECOMMENDED. 11/22/2024 6:15 PM CDT us [facility] Final Result [facility] [address] [place] [address], [place] [phone] * LIPASE (11/22/2024 6:15 PM CDT) LIPASE 31 13 - 75 UNITS/L 11/22/2024 7:06 PM CDT [facility] 11/22/2024 6:15 PM CDT [facility] Final Result [facility] [address] [place] [address], [place] [phone] * Qualitative HCG (11/22/2024 6:13 PM CDT) [facility] PREG SCREEN-SERUM NEGATIVE 11/22/2024 7:07 PM CDT [facility] 11/22/2024 6:13 PM CDT [facility] Final Result Performing Organization Address City/[facility]/ZIP Co de Phone Number [facility] [address] [place] [address], [place] [phone] * ECG 12 lead (11/22/2024 6:08 PM CDT) 11/22/2024 6:08 PM CDT Narrative [facility] RAD - 11/22/2024 6:44 PM CDT [address] Test Date: 2024-11-22 Pat Name: MEGHAN HYDE Department: 41 Room: INIL Gender: Female Fish Fryer: : 1995 Requested By: CARMENZA FARMER Order Number: [id number] Reading MD: Jose Henderson Measurements Intervals Duke Rate: 92 P: 67 [place]: 148 QRS: 0 QRSD: 86 T: 59 QT: 352 QTc: 437 Interpretive Statements SINUS RHYTHM No previous ECG available for comparison No ischemic changes Preliminary EKG Interpretation by KENDAL Jung Procedure Note Jose Hendreson MD - 11/22/[address] Test Date: 2024-11-22 Pat Name: MEGHAN HYDE Department: 41 Room: INIL Gender: Female Fish Fryer: : 1995 Requested By: CARMENZA FARMER Order Number: [id number] Reading MD: Jose Henderson Measurements Intervals Duke Rate: 92 P: 67 [place]: 148 QRS: 0 QRSD: 86 T: 59 QT: 352 QTc: 437 Interpretive Statements SINUS RHYTHM No previous ECG available for comparison No ischemic changes Preliminary EKG Interpretation by KENDAL Jung us [facility] Final Result [facility] RAD * XR CHEST PORTABLE (11/22/2024 5:44 PM CDT) Anatomical Region Laterality Modality Chest Radiographic Jeannette ging 11/22/2024 6:07 PM CDT Impressions 11/22/2024 6:07 PM CDT IMPRESSION: 1. No definite acute radiographic abnormalities identified in the chest. Referred By: Interpreted By: Chuck Mansfield MD, 11/22/2024 6:07 PM Narrative 11/22/2024 6:07 PM CDT [address] [address] Examination: Chest radiograph Exam time: 11/22/2024 5:28 PM Clinical history: Chest tightness. Comparison: None Technique: One view of the chest obtained. Findings: Normal heart size and pulmonary vascularity. No consolidation, pleural effusions, or definite pneumothorax. Osseous structures reveal no definite acute findings. Procedure Note Chuck Mansfield MD - 11/22/2024 [facility] [address], [place] [address] Examination: Chest radiograph Exam time: 11/22/2024 5:28 PM Clinical history: Chest tightness. Comparison: None Technique: One view of the chest obtained. Findings: Normal heart size and pulmonary vascularity. No consolidation,pleural effusions, or definite pneumothorax. Osseous structures reveal nodefinite acute findings. IMPRESSION: 1. No definite acute radiographic abnormalities identified in the chest. Referred By: Interpreted By: Chuck Mansfield MD, 11/22/2024 6:07 PM [facility] Final Result from Last 3 Months Insurance [employer] Care Teams Grants Manager Relationship Specialty Start Date End Date Radha Lopez FNP [address] [place] [address] KARYNA [place] [id number] PCP - General NURSE PRACTITIONER 03/29/24
--- OUTSIDE RECORDS SUMMARY | 2025-01-24 07:46 | XMS_ITS | Data Portability ---
Author Organization [place] - [facility] Frequent [employer], Main Office Address [address] [place] [address] Assessment No assessment recorded. Plan of Treatment Reminders Order Date Submit Date Provider Last Modified By Organization Details Last Modified Time Details Appointments None recorded. Lab None recorded. Referral gynecologis t referral - Please call patient to schedule an appointment . Thank you. 2023 [email or web address] Lonnie Nick MD, [address] [facility] [address], [facility] [address], [place], [address], 4 08:43:42 psychiatris t referral - Please call pt to schedule appt. Thank you 2022 023 [place] [id number] [facility], [address] [place] [address], [address], 3 18:51:01 Procedures None recorded. Surgeries None recorded. Imaging None recorded. Medication Orders Ubrelvy 50 mg tablet 2023 [facility], [address], [place], [address], 4 08:41:21 Qulipta 30 mg tablet 2023 [facility] [address], [address], [place], [address], 4 08:41:20 topiramate 50 mg tablet 2023 [facility] [address], [address], [place], [place], [address], 4 09:21:07 sumatriptan 50 mg tablet 2023 024 [facility] [address], [address], [place], [place], [address], 4 09:21:07 ondansetron 4 mg disintegrat ing tablet 2023 024 [facility] [address], [address], [place], [address], 4 09:21:06 fluoxetine 40 mg capsule 2022 [email or web address] [place] [address] Pharmacy 4878, [address], [place], [address], 4 09:15:45 clonazepam 0.5 mg tablet 2022 [email or web address] [place] [address] Pharmacy 4878, [address], [place], [address], 4 09:15:32 lamotrigine 100 mg tablet 2022 [email or web address] [place] [address] Pharmacy 4878, [address], [place], [address], 4 09:15:59 liothyronin e 25 mcg tablet 2022 [email or web address] [place] [address] Pharmacy 4878, [address], [place], [address], 4 09:16:05 quetiapine 400 mg tablet 2022 [email or web address] [place] [address] Pharmacy 4878, [address], [place], [place], [address], 4 09:16:36 dextroamphe tamine-amph etamine ER 20 mg 24hr capsule,ext end release 2022 023 [email or web address] [address] [facility] [facility], [address], [place], [address], 4 09:15:35 Patient TargetsNo targets recorded. Patient InstructionsNo instructions recorded. Reason for Referral Psychiatrist Referral for Bi polar disorder Please call pt to schedule appt. Thank you Referring Physician: Lorena Simeon, Family Medicine, Encounter Date: 10/13/2022 [employer] Referral for Bi cornuate uterus Please call patient to schedule an appointment. Thank you. Referring Physician: Radha Lopez, Family Medicine, Encounter Date: 04/11/2024 Results Created Date Observation Date Name Description Value Unit Range Abnormal Flag Note LastModifiedBy Organization Detail LastModifiedTime 09/07/19 21 09/06/2020 XR, tempo elmer dibul ar joint , bilat eral No observ ation record ed. [id number] , [place], [address], 09/03/2022 22:31:07 06/09/20 24 06/09/2024 [place], thyro id No observ ation record ed. [email or web address] [facility] 2022 Zakiya Harman [facility] [address], [place], [address], 08/11/2024 14:47:55 Result Notes None recorded. Problems Name Problem SNOMED Code Status Onset Date Resolution Date Notes Provider Name and Address Organization Details Recorded Time Acute sinusitis 87157137 Active Not Available [facility] 3 17:59:18 Anxiety state 576046317 Active Not Available [employer] 3 17:59:18 Headache 94177660 Active Not Available [facility] 3 17:59:18 Dysmenorrhea 599823404 Active Not Available [employer] 3 17:59:18 Anemia 925949804 Active Not Available [facility] 3 17:59:18 Dizziness and giddiness 689704694 Active Not Available [facility] 3 17:59:18 Malaise and fatigue 676314066 Active Not Available [facility] 3 17:59:18 Eruption 221817597 Active Not Available [facility] 3 17:59:18 Non-suppurati ve otitis media 861326660 Active Not Available [facility] 3 17:59:18 Right upper quadrant pain 618804518 Active Not Available [facility] 3 17:59:18 Hypoglycemia 656994940 Active Not Available [facility] 3 17:59:18 Vitamin D deficiency 38553718 Active Not Available [facility] 3 17:59:18 Depressive disorder 63073399 Active Not Available [facility] 3 17:59:18 Acute pharyngitis 630626919 Active Not Available [facility] 3 17:59:18 Fever 971933787 Active Not Available [facility] 3 17:59:18 Chronic sinusitis 61090893 Active Not Available [facility] 3 17:59:18 Vomiting 509870007 Active Not Available [facility] 3 17:59:18 Nausea 025871394 Active Not Available [facility] 3 17:59:18 Hypokalemia 82939536 Active Not Available [facility] 3 17:59:18 Streptococcal sore throat 16100093 Active Not Available [facility] 3 17:59:18 Abnormal cervical Papanicolaou smear 458430787 Active Not Available [facility] 3 17:59:18 Vitamin B deficiency 83967964 Active Not Available [facility] 3 17:59:19 Dysuria 41193475 Active Not Available [facility] 3 17:59:19 Acute upper respiratory infection 65233182 Active Not Available [facility] 3 17:59:19 Pityriasis versicolor 63717030 Active Not Available [facility] 3 17:59:19 Otitis media 20574965 Active Not Available [facility] 3 17:59:19 Urinary tract infectious disease 58157167 Active Not Available [facility] 3 17:59:19 Candidiasis 86548862 Active Not Available [facility] 3 17:59:19 Dysthymia 06276299 Active Not Available [facility] 3 17:59:19 Epigastric pain 70366765 Active Not Available [facility] 3 17:59:19 Irregular periods 60777891 Active Not Available [facility] 3 17:59:19 Pernicious anemia 81928006 Active Not Available [facility] 3 17:59:19 Fatigue 96074981 Active Not Available [facility] 3 17:59:19 Bipolar disorder 76430840 Active 2022 Not Available [facility] 3 17:59:18 Attention deficit hyperactivity disorder 574888087 Active 2022 Not Available [facility] 3 17:59:18 Migraine 43223660 Active 2023 MATTHEW Nunez [address], [address] [facility], [place], [address] , [employer] 4 09:17:39 Bicornuate uterus 69142933 Active 2023 MATTHEW Nunez [address], [place], [address] , [employer] 4 08:40:49 Problem Notes None recorded. Medical Equipment None Reported. Allergies No known drug allergies Medications Name Sig Start Date Stop Date Status Note LastModified by Organization Details LastModified Time quetiapine 25 mg tablet TAKE 1/2 TO 1 (ONE-HALF TO ONE) TABLET BY MOUTH ONCE DAILY NEEDED FOR ANXIETY 03/14 completed Not Available Not Available Not Available fluoxetine 40 mg capsule Take 1 capsule by mouth once daily 03/14 completed Not Available Not Available Not Available lamotrigin e 150 mg tablet TAKE 1 TABLET BY MOUTH TWICE DAILY DIRECTED active Not Available Not Available No t Available bupropion HCl SR 150 mg tablet,12 hr sustained- release TAKE 1 TABLET BY MOUTH EVERY MORNING FOR 7 DAYS THEN TAKE 1 TABLET BY MOUTH TWICE A DAY 10/13 completed Not Available Not Available Not Available venlafaxin e ER 37.5 mg capsule,ex tended release 24 hr TAKE 1 CAPSULE BY MOUTH EVERY DAY 10/13 completed Not Available Not Available Not Available Aviane 0.1 mg-20 mcg tablet TAKE 1 TABLET BY MOUTH ONCE DAILY active Not Available Not Available No t Available prednisone 10 mg tablet active Not Available Not Available Not Available venlafaxin e ER 75 mg capsule,ex tended release 24 hr TK 1 C PO D. 10/13 completed Not Available Not Available Not Available doxycyclin e hyclate 100 mg capsule active Not Available Not Available Not Available paroxetine 10 mg tablet active Not Available Not Available Not Available ketoconazo le 2 % shampoo active Not Available Not Available Not Available quetiapine 300 mg tablet TK 1 T PO HS. 10/13 completed Not Available Not Available Not Available potassium chloride ER 8 mEq capsule,ex tended release Take 1 capsule every day by oral route for 30 days. active Not Available Not Available No t Available azithromyc in 250 mg tablet active Not Available Not Available Not Available fluconazol e 150 mg tablet take 1 tablet every 72 hours x 3 doses active Not Available Not Available No t Available liothyroni ne 25 mcg tablet TAKE 1 TABLET BY MOUTH ONCE DAILY IN THE MORNING 03/14 completed Not Available Not Available Not Available Lotrisone 1 %-0.05 % topical cream apply thin layer to affected area BID x 5-7 days active Not Available Not Available No t Available vitamin B26-alqbun n B1 1,000 mcg-100 mg/mL injection solution Take 1 vial every 2 weeks by injection route. 2012 active twice a mo Not Available Not Available Not Available ondansetro n HCl 8 mg tablet TAKE 1 TABLET BY MOUTH EVERY 6 HOURS NEEDED 05/06 completed Not Available Not Available Not Available sucralfate 1 gram tablet Take 1 tablet twice a day by oral route as directed for 10 days. 05/06 completed Not Available Not Available Not Available ondansetro n HCl 4 mg tablet TAKE 1 TABLET BY MOUTH EVERY 8 HOURS 03/14 completed Not Available Not Available Not Available Medrol (Sagar) 4 mg tablets in a dose pack Take 6 tabs on day one, 5 tabs on day two, 4 tabs on day three, 3 tabs on day four, 2 tabs on day five, and 1 tab on day six. 10/13 completed Not Available Not Available Not Available clonazepam 0.5 mg tablet TAKE 1 TABLET BY MOUTH TWICE DAILY 03/14 completed Not Available Not Available Not Available doxycyclin e hyclate 50 mg capsule active Not Available Not Available Not Available clonazepam 1 mg tablet Take 1 tablet twice a day by oral route for 30 days. active Not Available Not Available No t Available venlafaxin e ER 150 mg capsule,ex tended release 24 hr TAKE ONE CAPSULE BY MOUTH EVERY DAY active Not Available Not Available No t Available sumatripta n 50 mg tablet Take 1 tablet po at onset, may repeat in 1 hour if needed. no more than 2 tablets in 24 hours. active Not Available Not Available No t Available lithium carbonate ER 300 mg tablet,ext ended release 08/20 completed Not Available Not Available Not Available topiramate 25 mg tablet Take 1 tablet twice a day by oral route for 30 days. 10/13 completed Not Available Not Available Not Available acetaminop hen 300 mg-codeine 30 mg tablet active Not Available Not Available Not Available omeprazole 40 mg capsule,de layed release TAKE 1 CAPSULE BY MOUTH EVERY DAY 10/13 completed Not Available Not Available Not Available tramadol 50 mg tablet TAKE 1 TABLET BY MOUTH EVERY 6 HOURS WITH MEALS FOR 3 DAYS active Not Available Not Available No t Available lamotrigin e 25 mg tablet active Not Available Not Available Not Available Celebrex 200 mg capsule 12/28 completed Not Available Not Available Not Available amoxicilli n 875 mg tablet Take 1 tablet every 12 hours by oral route with meals for 10 days. 11/11 completed Not Available Not Available Not Available alprazolam 0.25 mg tablet TAKE 1 TABLET BY MOUTH TWICE A DAY NEEDED 10/13 completed Not Available Not Available Not Available citalopram 20 mg tablet Take 1 tablet every day by oral route as directed for 30 days. active Not Available Not Available No t Available amitriptyl ine 25 mg tablet 10/24 completed Not Available Not Available Not Available dextroamph etamine-am phetamine ER 20 mg 24hr capsule,ex tend release TAKE 1 CAPSULE BY MOUTH ONCE DAILY 03/14 completed Not Available Not Available Not Available dicyclomin e 20 mg tablet TAKE 1 TABLET BY MOUTH EVERY 6 HOURS NEEDED active Not Available Not Available No t Available Klor-Con 8 mEq tablet,ext ended release active Not Available Not Available Not Available phenazopyr idine 100 mg tablet active Not Available Not Available No t Available Concerta 54 mg tablet,ext ended release 10/13 completed Not Available Not Available Not Available cyanocobal kahn (vit B-12) 1,000 mcg/mL injection solution INJECT 1 VIAL EVERY 2 WEEKS active Not Available Not Available No t Available Cipro 500 mg tablet Take 1 tablet every 12 hours by oral route with meals for 7 days. 01/26 completed Not Available Not Available Not Available buspirone 10 mg tablet TAKE 1 TABLET BY MOUTH THREE TIMES DAILY DIRECTED 03/14 completed Not Available Not Available Not Available Concerta 36 mg tablet,ext ended release TAKE 2 TABLETS BY MOUTH EVERY MORNING 10/13 completed Not Available Not Available Not Available Wellbutrin 75 mg tablet Take 1 tablet every day by oral route. active Not Available Not Available No t Available buspirone 7.5 mg tablet TAKE 1 TABLET BY MOUTH THREE TIMES DAILY DIRECTED 03/14 completed Not Available Not Available Not Available montelukas t 10 mg tablet Take 1 tablet every day by oral route at bedtime. active Not Available Not Available No t Available hydroxyzin e HCl 25 mg tablet TAKE 1 & 1/2 TO 2 (ONE & ONE-HALF TO TWO) TABLETS BY MOUTH NEEDED FOR ANXIETY 03/14 completed Not Available Not Available Not Available ergocalcif brad (vitamin D2) 1,250 mcg (50,000 unit) capsule Take 1 capsule every week by oral route. active Not Available Not Available No t Available diazepam 10 mg tablet TAKE 1/2 (ONE-HALF ) TABLET BY MOUTH IN THE MORNING AND 1 EVERY DAY AT BEDTIME 03/14 completed Not Available Not Available Not Available Prozac 10 mg capsule Take 1 capsule every day by oral route in the evening for 30 days. 07/06 completed Not Available Not Available Not Available dextroamph etamine-am phetamine ER 30 mg 24hr capsule,ex tend release TAKE 1 CAPSULE BY MOUTH EVERY MORNING. 03/14 completed Not Available Not Available Not Available Cipro 250 mg tablet Take 1 tablet every 12 hours by oral route for 7 days. 01/06 completed Not Available Not Available Not Available clomiprami ne 25 mg capsule active Not Available Not Available Not Available ondansetro n 4 mg disintegra ting tablet DISSOLVE 1 TABLET IN MOUTH EVERY 8 HOURS NEEDED active Not Available Not Available No t Available fluoxetine 20 mg capsule TAKE 1 CAPSULE BY MOUTH ONCE DAILY WITH MEALS 03/14 completed Not Available Not Available Not Available fluticason e propionate 50 mcg/actuat ion nasal spray,susp ension SPRAY 1 SPRAY IN EACH NOSTRIL EVERY DAY DIRECTED 03/14 completed prn Not Available Not Available Not Available lamotrigin e 100 mg tablet TAKE 1 TABLET BY MOUTH TWICE DAILY DIRECTED 03/14 completed Not Available Not Available Not Available Ortho Tri-Cyclen (28) 0.18 mg(7)/0.21 5mg(7)/0.2 5 mg(7)-0.03 5 mg tablet TAKE 1 TABLET BY MOUTH EVERY DAY active Not Available Not Available No t Available naproxen 500 mg tablet TAKE 1 TABLET BY MOUTH EVERY 12 HOURS FOR 5 DAYS. TAKE WITH FOOD, START TONIGHT BEFORE BEDTIME. 03/14 completed Not Available Not Available Not Available amoxicilli n 875 mg-potassi um clavulanat e 125 mg tablet active Not Available Not Available Not Available Ventolin HFA 90 mcg/actuat ion aerosol inhaler INHALE 2 PUFFS BY MOUTH EVERY 4 HOURS NEEDED 10/13 completed Not Available Not Available Not Available buspirone 15 mg tablet TAKE 1 TABLET BY MOUTH THREE TIMES DAILY DIRECTED 03/14 completed Not Available Not Available Not Available Bactrim DS 800 mg-160 mg tablet Take 1 tablet every 12 hours by oral route after meals for 10 days. 01/07 completed Not Available Not Available Not Available Lexapro 10 mg tablet Take 1 tablet every day by oral route. 2012 active Not Available Not Available Not Avai lable Zetia 10 mg tablet 12/28 completed Not Available Not Available Not Available bupropion HCl XL 300 mg 24 hr tablet, extended release Take 1 tablet every day by oral route for 30 days. active Not Available Not Available No t Available bupropion HCl XL 150 mg 24 hr tablet, extended release Take 1 tablet every day by oral route for 30 days. active Not Available Not Available No t Available hydrocorti sone butyrate-e mollient 0.1 % topical cream active Not Available Not Available Not Available topiramate 50 mg tablet Take 1 tablet twice a day by oral route. active Not Available Not Available No t Available nitrofuran toin monohydrat e/macrocry stals 100 mg capsule Take 1 capsule every 12 hours by oral route with meals for 10 days. active Not Available Not Available No t Available duloxetine 60 mg capsule,de layed release TK ONE C PO QD 10/13 completed Not Available Not Available Not Available Ortho Tri-Cyclen LO (28) daily 2012 active Not Available Not Available Not Avai lable quetiapine 50 mg tablet 08/20 completed Not Available Not Available Not Available quetiapine 400 mg tablet TAKE 1 TABLET BY MOUTH AT BEDTIME 03/14 completed Not Available Not Available Not Available Pataday 0.2 % eye drops active Not Available Not Available Not Available cholecalci ferol (vitamin D3) 1,250 mcg (50,000 unit) capsule TAKE 1 CAPSULE BY MOUTH ONCE A WEEK DIRECTED 03/14 completed Not Available Not Available Not Available lisdexamfe tamine 30 mg capsule TAKE 1 CAPSULE BY MOUTH ONCE DAILY IN THE MORNING FOR 30 DAYS 03/14 completed Not Available Not Available Not Available quetiapine ER 400 mg tablet,ext ended release 24 hr TAKE 1 TABLET BY MOUTH ONCE DAILY AT BEDTIME FOR 30 DAYS 03/14 completed Not Available Not Available Not Available quetiapine ER 300 mg tablet,ext ended release 24 hr 10/13 completed Not Available Not Available Not Available lisdexamfe tamine 40 mg capsule TAKE 1 CAPSULE BY MOUTH ONCE DAILY IN THE MORNING FOR 30 DAYS active Not Available Not Available No t Available Pristiq 50 mg tablet,ext ended release active Not Available Not Available Not Available quetiapine ER 150 mg tablet,ext ended release 24 hr Take 1 tablet every day by oral route for 30 days. 10/13 completed Not Available Not Available Not Available lamotrigin e 200 mg disintegra ting tablet TAKE 1 TABLET BY MOUTH AT BEDTIME 10/13 completed Not Available Not Available Not Available lamotrigin e 25 mg disintegra ting tablet 08/20 completed Not Available Not Available Not Available lamotrigin e 100 mg disintegra ting tablet 08/20 completed Not Available Not Available Not Available Suprep Bowel Prep Kit 17.5 gram-3.13 gram-1.6 gram oral solution 10/24 completed Not Available Not Available Not Available lurasidone 40 mg tablet TAKE ONE TABLET BY MOUTH ONCE DAILY AT BEDTIME FOR 30 DAYS 03/14 completed Not Available Not Available Not Available lurasidone 20 mg tablet TAKE 1 TABLET BY MOUTH ONCE DAILY EVERY NIGHT AT BEDTIME FOR 7 DAYS 03/14 completed Not Available Not Available Not Available Epiduo Forte 0.3 %-2.5 % topical gel with pump active Not Available Not Available Not Available Vraylar 1.5 mg capsule TAKE 1 CAPSULE BY MOUTH ONCE DAILY AT BEDTIME 03/14 completed Not Available Not Available Not Available Vraylar 3 mg capsule TAKE 1 CAPSULE BY MOUTH ONCE DAILY AT BEDTIME FOR 30 DAYS 03/14 completed Not Available Not Available Not Available Ubrelvy 50 mg tablet TAKE ONE TABLET BY MOUTH AT ONSET OF MIGRAINE. IF SYMPTOMS PERSIST, A SECOND DOSE MAY BE TAKEN IN 2 HOURS. active Not Available Not Available No t Available Qulipta 30 mg tablet Take 1 tablet by mouth once daily 2024 active Not Available Not Available Not Avai lable Auvelity 45 mg-105 mg tablet, extended release TAKE 1 TABLET BY MOUTH TWICE DAILY DIRECTED FOR DEPRESSIO N 03/14 completed Not Available Not Available Not Available Vitals Date Recorded Body mass index (BMI) Body height Oxygen saturation Oxygen saturation in Arterial blood by Pulse oximetry Heart rate Body temperature Body weight Systolic And Diastolic Provider Name and Address Organization Details Last Updated DateTime 1 27.1 kg/m2 157.48 cm 98 % 98 % 116 /min 98.4 [degF] 60281.6 7 g 118/60 mm[Hg] Not Available [facility] 3 22:27:27 Date Recorded Body height Body mass index (BMI) Body weight Body temperature Heart rate Oxygen saturation Oxygen saturation in Arterial blood by Pulse oximetry Systolic And Diastolic Provider Name and Address Organization Details Last Updated DateTime 3 160.02 cm 29.8 kg/m2 28045.5 2 g 97.1 [degF] 93 /min 98 % 98 % 116/80 mm[Hg] Priscilla Tineo [place] [employer] [facility] 3 10:40:30 Date Recorded Body weight Body mass index (BMI) Body height Body temperature Heart rate Oxygen saturation Oxygen saturation in Arterial blood by Pulse oximetry Systolic And Diastolic Provider Name and Address Organization Details Last Updated DateTime 4 94447.9 3 g 30.5 kg/m2 157.48 cm 98.7 [degF] 96 /min 97 % 97 % 130/96 mm[Hg] Giuliana Rai MA [facility] [employer] [facility] 4 08:45:42 Date Recorded Body height Body mass index (BMI) Body weight Body temperature Heart rate Oxygen saturation Oxygen saturation in Arterial blood by Pulse oximetry Systolic And Diastolic Provider Name and Address Organization Details Last Updated DateTime 4 157.48 cm 29.3 kg/m2 38293.7 8 g 98.6 [degF] 90 /min 96 % 96 % 128/80 mm[Hg] Jona Uribe RN [facility] [employer] [facility] 4 08:31:03 Social History Question Answer Notes LastModified by Organizat ion Details LastModified Time Tobacco Smoking Status Former Smoker Not Available [facility] 09/03/2022 22:27:05 How Much Tobacco Do You Chew? None [id number] Information not available 09/03/2022 In The 14 Days Before Symptom Onset, Have You Had Close Contact With A Laboratory-confir med COVID-19 While That Case Was Ill? No [id number] Information not available 09/03/2022 In The 14 Days Before Symptom Onset, Have You Had Close Contact With A Person Who Is Under Investigation For COVID-19 While That Person Was Ill? No [id number] Information not available 09/03/2022 What Type Of Diet Are You Following? REGULAR [email or web address] Information not available 10/13/2022 Are You Following A Low Salt Diet? No [email or web address] Information not available 10/13/2022 Have You Ever Been Counseled For Unhealthy Alcohol Use? No [email or web address] Information not available 10/13/2022 How Much Tobacco Do You Smoke? 1 PPW [id number] Information not available 09/03/2022 Has Tobacco Cessation Counseling Been Provided? No [email or web address] Information not available 10/13/2022 Do You Have Any Dietary Restrictions? Yes Cinnamon [email or web address] Information not available 10/13/2022 Sex: Female Functional Status Question Answer Note LastModified by Organizat ion Details LastModified Time Do you use any illicit or recreational drugs? Yes sometimes not all the time [email or web address] Information not available 10/13/2022 What is your level of alcohol consumption? Occasional [email or web address] Information not available 10/13/2022 What is your exercise level? Occasional [email or web address] Information not available 10/13/2022 Mental Status None recorded. Family History Nothing Reported Notes:No colon, no breast ca ncer autoimmune dz, dm, macular degeneration Medical History No medical history recorded. Gynecological HistoryNo gynecological history recorded. Obstetrics History GPAL:G 0 P 0 0 0 0 Immunizations Vaccine Type Date Status Note Provider Nam e and Address Organization Details Recorded Time Hep B, adolescent or pediatric 08/03/1995 completed Not Available [facility] 3 17:59:19 Hep B, adolescent or pediatric 01/28/1995 completed Not Available [facility] 3 17:59:19 Hep B, adolescent or pediatric 1994 completed Not Available [facility] 3 17:59:19 Tdap 11/01/2008 completed Not Available [facility] 10/24/2022 17:59:19 Past Encounters Encounter ID Performer Location Encounter Start Date Encounter Closed Date Diagnosis/Indication Diagnosis SNOMED-CT Code Diagnosis ICD10 Code Diagnosis Note [id number] LEVON Benton [facility] [address] [place] [address] 09/06/2020 00:00:00 09/06/2020 10:24:50 [id number] KENDAL Chan [facility] Primary Care [place] [address] [place] [address] 10/13/2022 10:29:48 10/13/2022 11:08:21 Bipolar disorder [id number] F31.9 Stable. Will get her re-establi shed with new psychiatri st to continue care, will refill medication s in the interim. No changes made. Attention deficit hyperactivity disorder [id number] F90.9 Decrease dextroamph etamine-am phetamine ER20mg daily.Will get her establishe d with new psychiatri st to continue care. [id number] MATTHEW Nunez [facility] [address] [place] [address] 03/14/2024 08:28:02 03/14/2024 09:24:17 Migraine [id number] G43.909 Will follow up in one month. [id number] MATTHEW Nunez [facility] [address] [place] [address] 04/07/2024 15:38:58 04/07/2024 15:58:12 [id number] MATTHEW Nunez [facility] [place] [facility] [address] [place] [address] 04/11/2024 08:24:23 04/11/2024 08:45:16 Migraine [id number] G43.909 Patient did not tolerate Topiramate or Sumatripta n, will wean off Topiramate and start Qulipta as listed below. Will also try Ubrelvy PRN instead of Sumatripta n.Will follow up in one month. Bicornuate uterus [id number] Q51.3 Health Concerns Section Related Observation LastModified by Organization Detai ls LastModified Time None Recorded Concern Status LastModified by Organization Details LastModified Time None Recorded Advance Directives Directive None Recorded Payers Insurance Date Sequence Insurance Name Policy Number Policy Escoto Covered Member ID Escoto Member ID Guarantor Name 03/14/2024 [facility] Haydee Hyde SELF SELF Haydee Hyde 03/14/2024 1 [facility] Haydee Granados [id number] Haydee Hyde 04/15/2024 1 [facility] Haydee Hyde [id number] Haydee Hyde 03/14/2024 2 [employer] [id number] Haydee Granados [id number] Haydee Hyde 03/14/2024 1 [employer] [id number] Haydee Hyde [id number] Haydee Hyde Notes Date Note Type Note Provider Name and Address Organization Details Recorded Time 10/13/2022 text/html Pt. has been established with Dr. Hubert Bal (psychiatry) but he has now retired. She is working on finding new psychiatrist but needs medications refilled in the meantime. KENDAL Chan [address], [place], [address], [employer] 10/13/2022 12:45:14 03/14/2024 text/html Patient is a 28 year old female that presents to the office for follow up. Patient reports increased frequency of migraines over the last month. Patient reports one month ago she had to go to for a migraine, received Toradol and symptoms resolved. Patient reports most frequent migraine was last week and lasted 3 days. Patient typically takes Excedrin however it only provided mild relief. Patient reports severe nausea with most previous migraine. Patient denies headache at this time. Patient reports she had labs drawn at psychiatrist's office, would like us to obtain those records for review. Patient denies chest pain and shortness of breath, nausea vomiting and diarrhea. MATTHEW Nunez [address], [place], [address], [employer] 03/14/2024 11:24:13 04/11/2024 text/html Patient is a 28 year old female that presents to the office for follow up on migraines. Patient reports she is still having frequent migraines, at least one per week. Patient has been taking the Topiramate daily, however she reports it causes anxiety. Patient also thinks the PRN Sumatriptan makes her migraines worse. Patient reports very mild headache at this time. Patient went to [facility] ER on March 29 for blood in stool, had CT scan and AKI and the cause of blood was not identified. Patient denies any blood in stool since then. Patient reports blood was bright red and was in the toilet after BM. Patient reports some straining with bowel movements. Patient was also told that she had an abnormally shaped uterus and needed to follow up. Patient denies chest pain and shortness of breath, nausea vomiting and diarrhea. MATTHEW Nunez [address], [place], [address], [employer]NO[employer]RE Frequent Browser 04/11/2024 09:06:26 OBGyn Episode No OBEpisode recorded.
== END 2025-01-24 07:40 | disposition home or self-care (01) ==
PROVIDERS: Visit Provider Internal Medicine Endocrinology, Diabetes & Metabolism
DX: R93.0 Abnormal findings on diagnostic imaging of skull and head, not elsewhere classified (principal); G62.9 Polyneuropathy, unspecified
CPT/HCPCS: 70553; A9577